=== PATIENT | female | born 1985 | race Caucasian/White ===

== ENCOUNTER 2020-02-08 12:06 | Emergency (ER) | payer OTHER, SELFPAY ==
[2020-02-08 12:23] VITALS: BP 117/55; PULSE 64; RESP 14; TEMP 36.8; O2SAT 100; BMI 35.4
--- NOTE | 2020-02-08 12:24 | XR_ITS ---
EXAMINATION: XR FOOT, LEFT CLINICAL INFORMATION: Trauma second toe. COMPARISON: None TECHNIQUE: AP, lateral, and oblique views of the left foot. FINDINGS: The second through fifth toes are superimposed on the lateral view. There is no visible fracture or dislocation or destructive process. No joint narrowing or erosive change. There is plantar calcaneal spur. The subtalar joint is unremarkable. The retrocalcaneal recess is preserved. XR/XR foot LT min 3V IMPRESSION: No fracture or dislocation. Plantar calcaneal spur.
--- NOTE | 2020-02-08 12:32 | ED.LOWEXIN ---
HPI - Extremity Injury (Lower) General Chief Complaint: Extremity Injury, Lower Stated Complaint: TOE INJURY Time Seen by Provider: 02/08/20 12:24 Source: patient Mode of arrival: ambulatory Limitations: no limitations History of Present Illness HPI Narrative: Tripped and fell catching 2nd toe on left foot underneath her scraping the pavement causing laceration to the toe and nailbed. Tetanus unknown. MD complaint: foot injury Onset (ago): minute(s) Injury: Left: toes (#2) Type of Injury: laceration Place: street/outdoors Severity: moderate Relieving factors: nothing Exacerbating factors: nothing Context: fall Other symptoms: none Related Data Previous Rx's Medication Instructions Recorded acetaminophen 650 mg PO Q6H PRN #20 cap 02/08/20 clindamycin HCl 150 mg PO TID 7 Days #21 cap 02/08/20 ibuprofen 600 mg PO Q8H PRN #20 tab 02/08/20 Allergies Allergy/AdvReac Type Severity Reaction Status Date / Time amoxicillin [Amoxicillin] Allergy Mild RASH Unverified 12/28/19 15:29 amoxicillin Allergy Unknown Uncoded 02/18/18 00:00 Review of Systems Review of Systems: Yes all other systems are reviewed and are negative Constitutional: Constitutional: Reports no additional constitutional complaints, Denies body ache(s), Denies chills, Denies fever(s), Denies headache(s) and Denies weakness Eyes: Eyes: Reports no additional eye complaints and Denies change in vision ENT: Reports system reviewed and no additional complaints, except as documented, Denies dizziness, Denies headache(s), Denies nasal congestion, Denies nasal discharge and Denies neck pain Cardiovascular: Cardiovascular: Reports no additional cardiovascular complaints, Denies chest pain, Denies leg edema and Denies dyspnea Respiratory: Respiratory: Reports no additional respiratory complaints, Denies cough and Denies dyspnea Gastrointestinal: Gastrointestinal: Reports no additional gastrointestinal complaints, Denies abdominal pain, Denies diarrhea, Denies nausea and Denies vomiting Genitourinary: Genitourinary: Reports no additional female genitourinary complaints and Denies urinary incontinence Musculoskeletal: Musculoskeletal: Reports no additional musculoskeletal complaints, Denies back pain, Reports arthralgias, Reports joint swelling, Denies neck pain, Denies numbness and Denies tingling Comments: +laceration Integumentary/Breasts: Skin/Breast: Reports system reviewed and no additional complaints, except as docu and Denies rash Neurologic: Reports system reviewed and no additional complaints, except as documented, Denies Abnormal speech present, Denies dizziness, Denies headache(s), Denies numbness, Denies tingling and Denies weakness PMFSH Past Medical History Attestation statement: The following information was validated with the patient. Source: obtained from family and nursing notes reviewed Surgical History Hx of cholecystectomy Previous section Social History Social History Smoking Status: Current some day smoker Use of substances other than those prescribed or required for medical reasons: Yes Substance Use Type: Crack/Cocaine and Marijuana Substance Use Frequency: Occasionally Last Used Substance: Days (ago) Advance Directives: No Advance Directives Information Provided: No Physical Exam Vital Signs: Vital Signs: Vital Signs Temp Pulse Resp BP Pulse Ox 02/08/20 12:23 98.3 F 64 14 117/55 L 100 Body Mass Index 35.4 Const: General: cooperative, healthy appearing, comfortable and no acute distress Orientation/consciousness: patient oriented x3 Limitations: no limitations HENMT: Head: Yes normal to inspection Ears: hearing grossly normal bilaterally General nose exam: Normal external nose present Face and sinus: Yes normal facial exam Mouth: Normal oral and palatal mucosa present Throat: Yes posterior oropharynx normal Eyes: General: appearance normal, both eyes and all related structures Pupils: Equal, round and reactive pupils present Neck: Neck: Yes normal visual inspection Chest: Chest palpation & inspection: normal inspection of the chest Resp: Effort & Inspection: normal respiratory effort Auscultation: clear to auscultation bilaterally Cardio: Rate: regular rate Rhythm: regular rhythm Peripheral pulses: Peripheral pulses 2+ throughout GI: Inspection: Yes normal to inspection Palpation (GI): Soft to palpation and nontender Auscultation: normal bowel sounds Back/Spine/Pelvis: Thoracic/Lumbar Spine: thoracic and lumbar spine normal to inspection Skin: General skin exam: no rashes or lesions noted Neuro: General: patient oriented x3, no focal motor deficits and normal sensation to monofilament Cranial nerves: Yes Equal, round and reactive pupils present Cognition (Neuro): normal cognition Speech: No Abnormal speech present Gait exam (Neuro): Normal gait present Motor exam (neuro): 5/5 motor strength present throughout Extrem: Other: just proximal to the nail bed on the left 2nd toe there is a circular laceration. It is not circumferential. The nailbed is lifted up and exposed. There is mild bleeding at the site but is controlled. The patient is able to flex and extend the toe but does have some discomfort.Norm cap refill, NV intact. General: Yes normal to inspection Course Course Course Narrative: Patient here with left 2nd toe laceration with involvement of the nailbed. She will need x-rays, tetanus updated, wound repair and antibiotics for home. 1350-X-rays negative. See wound repair note. Nail plate placed back under the cuticle and sutures used to hold in place. Wound care and post-op shoe. Reviewed worrisome signs and symptoms and when to return to the emergency department. Comfortable discharge home. Procedures Laceration Laceration 1: Site: lower extremity (2nd toe ) Side (If applicable): left Size (cm): 1.5 Description: linear (circular around nail bed) Depth: simple, single layer (involves nailbed) Local Anesthetic: lidocaine 2% Pre-repair: wound explored and irrigated extensively Skin layer closed with: nylon Size (cm): 3-0 Number of sutures: 6 Technique: simple, interrupted MDM - Extremity Injury (Lower) Medical Records Attestation: I reviewed the patient's medical records. Lab Data Attestation: I reviewed the patient's lab results. Imaging Data foot xray: Radiologist's impression: EXAMINATION: XR FOOT, LEFT CLINICAL INFORMATION: Trauma second toe. COMPARISON: None TECHNIQUE: AP, lateral, and oblique views of the left foot. FINDINGS: The second through fifth toes are superimposed on the lateral view. There is no visible fracture or dislocation or destructive process. No joint narrowing or erosive change. There is plantar calcaneal spur. The subtalar joint is unremarkable. The retrocalcaneal recess is preserved. XR/XR foot LT min 3V IMPRESSION: No fracture or dislocation. Plantar calcaneal spur. Discharge Plan Discharge Clinical Impression: Avulsion of nail plate Patient Disposition: Home, Self-Care Instructions: Nail Avulsion (ED) Additional Instructions: Sutures out in 7-10 days Do not let them soak in water. Water may run over the sutures. Use shoe so you do not hit your toe and disrupt the nail. Even though we did the best we could the nail may still fall off. Prescriptions: New ibuprofen 600 mg tablet 600 mg PO Q8H PRN (Reason: fever or pain) Qty: 20 RF: 0 acetaminophen 325 mg capsule 650 mg PO Q6H PRN (Reason: fever or pain) Qty: 20 RF: 0 clindamycin HCl 150 mg capsule 150 mg PO TID 7 Days Qty: 21 RF: 0 Referrals: Physician,Unknown [Primary Care Provider] - 2 days Interventions: ED Discharge Assessment Last Done: 02/08/20 13:43 Discharge Date/Time: 02/08/20 13:44
[2020-02-08] MEDS: Lidocaine HCl 2 % MPF 5 ML VIAL SUBCUT (12:41)
== END 2020-02-08 13:44 | disposition home or self-care (01) ==
PROVIDERS: Emergency Provider Emergency Medicine
DX: S91.215A Laceration without foreign body of left lesser toe(s) with damage to nail, initial encounter (principal); S30.811A Abrasion of abdominal wall, initial encounter; S91.205A Unspecified open wound of left lesser toe(s) with damage to nail, initial encounter; M79.672 Pain in left foot; F14.90 Cocaine use, unspecified, uncomplicated; F12.90 Cannabis use, unspecified, uncomplicated; Y33.XXXA Other specified events, undetermined intent, initial encounter; Y93.9 Activity, unspecified; Y92.410 Unspecified street and highway as the place of occurrence of the external cause; F17.200 Nicotine dependence, unspecified, uncomplicated; Z71.6 Tobacco abuse counseling; Z23 Encounter for immunization
CPT/HCPCS: 12001; 73630; 90471; 90715; 99283; 99284

== ENCOUNTER 2020-02-09 09:38 | Outpatient (REF) | payer OTHER, SELFPAY | END 2020-02-09 09:39 | disposition home or self-care (01) | LOC: HO.LAB 09:38 | PROVIDERS: Visit Provider Internal Medicine | DX: Z20.828 Contact with and (suspected) exposure to other viral communicable diseases (principal) | CPT/HCPCS: U0003 ==

== ENCOUNTER 2020-07-19 14:36 | Outpatient (REF) | payer OTHER, SELFPAY ==
[2020-07-19 16:13] LABS: COVID-19 Test Negative (Negative); IDNOW Serial# 55D5AD1C
== END 2020-07-19 14:37 | disposition home or self-care (01) ==
LOC: HO.LAB 14:36
PROVIDERS: Visit Provider Internal Medicine
DX: Z20.822 Contact with and (suspected) exposure to COVID-19 (principal)
CPT/HCPCS: 36415; 87635; C9803

== ENCOUNTER 2020-09-18 17:26 | Emergency (ER) | payer OTHER, SELFPAY ==
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
[2020-09-18 17:48] VITALS: BP 121/70; PULSE 108; RESP 17; TEMP 36.3; O2SAT 94; BMI 46.0
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
== END 2020-09-18 19:21 | disposition home or self-care (01) ==
PROVIDERS: Emergency Provider Emergency Medicine; PCP Internal Medicine
DX: S86.111A Strain of other muscle(s) and tendon(s) of posterior muscle group at lower leg level, right leg, initial encounter (principal); Y04.2XXA Assault by strike against or bumped into by another person, initial encounter; R00.0 Tachycardia, unspecified; M25.561 Pain in right knee; Y93.9 Activity, unspecified; Y92.9 Unspecified place or not applicable; Y99.9 Unspecified external cause status
CPT/HCPCS: 73562; 99283

== ENCOUNTER 2020-10-16 10:11 | Emergency (ER) | payer OTHER, SELFPAY ==
--- NOTE | ~2020-10-16 | XR_ITS ---
EXAMINATION: CHEST X-RAY AND RIGHT KNEE X-RAY CLINICAL INFORMATION: Pain COMPARISON: Previous chest x-ray June 2017 and right knee x-ray September 2020 TECHNIQUE: 2 views of the chest and 4 views of the right knee FINDINGS: Chest: The cardiac and mediastinal contours are normal. The lungs are clear. There is no pleural effusion or pneumothorax. Bony structures are unremarkable. Right knee: Bone alignment is normal. No fracture or dislocation is seen. The joint spaces are normal. There are sclerotic densities seen in the distal femur and proximal tibia. These may represent bone islands or nonossifying fibromas. Soft tissues are normal. There is no joint effusion. 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
--- NOTE | ~2020-10-16 | XR_ITS ---
EXAMINATION: CHEST X-RAY AND RIGHT KNEE X-RAY CLINICAL INFORMATION: Pain COMPARISON: Previous chest x-ray June 2017 and right knee x-ray September 2020 TECHNIQUE: 2 views of the chest and 4 views of the right knee FINDINGS: Chest: The cardiac and mediastinal contours are normal. The lungs are clear. There is no pleural effusion or pneumothorax. Bony structures are unremarkable. Right knee: Bone alignment is normal. No fracture or dislocation is seen. The joint spaces are normal. There are sclerotic densities seen in the distal femur and proximal tibia. These may represent bone islands or nonossifying fibromas. Soft tissues are normal. There is no joint effusion. 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
[2020-10-16 10:24] VITALS: BP 119/59; PULSE 85; RESP 16; TEMP 36.1; O2SAT 98; BMI 49.6
--- NOTE | 2020-10-16 10:58 | ECG_ITS ---
Test Reason : CHEST PAIN Blood Pressure : / mmHG Vent. Rate : 054 BPM Atrial Rate : 054 BPM P-R Int : 144 ms QRS Dur : 088 ms QT Int : 422 ms P-R-T Axes : 027 -20 025 degrees QTc Int : 400 ms Sinus bradycardia with sinus arrhythmia Moderate voltage criteria for LVH, may be normal variant Borderline ECG When compared with ECG of 08-JUN-2017 10:33, No significant change was found Referred By: Amy Estrada Electronically Signed By:ELIZABETH NEVILLE
[2020-10-16 12:12] LABS: MANUAL DIFF FLAG NO
[2020-10-16 12:18] LABS: Basophils Percent Auto 0.4 % (0-2); Eosinophils Absolute Auto 0.4 X10*3/uL (0.0-0.4); Eosinophils Percent Auto 3.4 % (0-4); Hematocrit 42.4 % (37-47); Hemoglobin 13.3 g/dl (12.0-16.0); Imm Gran Abs Auto 0.04 X10*3/uL (0.00-0.03); Imm Gran Pct Auto 0.4 % (0.0-0.4); Lymphocytes Absolute Auto 3.1 X10*3/uL (1.2-4.9); Lymphocytes Percent Auto 27.7 % (20-40); Mean Corpuscular HGB Conc 31.4 g/dl (31.0-35.0); Mean Corpuscular Volume 86.2 fL (80-98); Mean Platelet Volume 9.7 fL (9.4-12.3); Monocytes Absolute Auto 0.8 X10*3/uL (0.1-1.2); Monocytes Percent Auto 6.9 % (2-11); Neutrophils Absolute Auto 6.8 X10*3/uL (2.0-8.3); Neutrophils Percent Auto 61.2 % (45-73); Platelet Count 357 X10*3/uL (160-400); Red Blood Count 4.92 X10*6/uL (4.20-5.50); Red Cell Distribution Width 13.6 % (11.0-16.0); White Blood Count 11.1 X10*3/uL (4.8-10.8)
[2020-10-16 12:23] LABS: Glucose Urine UA NEG (NEG); Leukocyte Esterase Urine NEG (NEG); Nitrite Urine NEG (NEG); Specific Gravity - Urine >= 1.030 (1.005-1.025); Urine Blood 1+ (NEG); Urine Ketones NEG (NEG); Urine Protein NEG (NEG-TRACE)
[2020-10-16 12:25] LABS: Appearance Urine HAZY; Color Urine YELLOW
[2020-10-16 12:26] LABS: UPreg QC Valid YES; Urine Pregnancy NEGATIVE (NEGATIVE)
[2020-10-16 12:34] LABS: Mucus Urine 1+ /LPF; Squamous Epithelial Cell Urine 1+ /LPF; Urine Talc Crystals 1+ /LPF; WBC Urine 0 /HPF (0-4)
[2020-10-16 12:47] LABS: Alanine Aminotransferase 17 U/L (0-31); Albumin Level 3.6 g/dL (3.5-5.0); Alkaline Phosphatase 91 U/L (39-117); Anion Gap 15 (12-20); Aspartate Amino Transferase 16 U/L (5-31); Bilirubin Total 0.7 mg/dL (0.0-1.0); Blood Urea Nitrogen 9 mg/dL (9-16); Carbon Dioxide 22 mmol/L (22-29); Chloride 109 mmol/L (96-108); Creatinine Clr Calc Pharmacy 152.2; Estimated Glomerular Filt Rate > 60; Glucose Random 75 mg/dL (60-115); Potassium 4.6 mmol/L (3.3-5.1); Sodium 141 mmol/L (135-145); Total Protein 6.4 g/dL (6.5-8.0)
[2020-10-16 12:48] LABS: B Type Natriuretic Peptide 54 pg/mL (<100); Troponin-I High Sensitivity < 3.5 ng/L (<3.5-17.0)
--- NOTE | 2020-10-16 12:49 | ED_ITS ---
HPI - General Adult General Chief complaint: General Medical <HAYDER Whatley - Last Filed: 10/16/20 13:08> Stated complaint: leg pain <HAYDER Whatley Last Filed: 10/16/20 13:08> Time Seen by Provider: 10/16/20 10:27 <HAYDER Whatley Last Filed: 10/16/20 13:08> Source: patient <HAYDER Whatley Last Filed: 10/16/20 13:08> Mode of arrival: ambulatory <HAYDER Whatley Last Filed: 10/16/20 13:08> Limitations: no limitations <HAYDER Whatley Last Filed: 10/16/20 13:08> History of Present Illness HPI narrative: 35-year-old female with a past medical history of hypertension and depression presenting to the ED with complaints of right knee pain for the past 3 weeks reports that she had an x-ray here approximately 3 weeks ago and they told her it was all within normal limits although her pain continues and she reports that occasionally she will walk and she feels like her leg goes out to the side. She is also complaining of intermittent left-sided chest pain for the past 3 days usually when she is driving. She reports she is under lot of str ess. Denies any dizziness, headaches, change of vision, nausea /vomiting, dyspnea on exertion, orthopnea, shortness of breath, palpitations, lower extremity edema, abdominal pain, back pain, recent travel on a long plane clinical trainer car ride, history of DVT, she denies being on any oral control, she denies any recent surgery or immobilization, she denies any other symptoms complaints or concerns at this time. <HAYDER Whatley Last Filed: 10/16/20 13:08> Related Data Home medications: Previous Rx's Medication Instructions Recorded acetaminophen 650 mg PO Q6H PRN #20 cap 02/08/20 clindamycin HCl 150 mg PO TID 7 Days #21 cap 02/08/20 ibuprofen 600 mg PO Q8H PRN #20 tab 02/08/20 naproxen [Naprosyn] 500 mg PO BID #20 tab 09/18/20 acetaminophen [Tylenol Extra 1,000 mg PO QID PRN #14 tab 10/16/20 Strength] ibuprofen 800 mg PO Q8H PRN #14 tab 10/16/20 oxycodone 5 mg PO Q8H PRN 3 Days #9 tab 10/23/20 <HAYDER Whatley - Last Filed: 10/16/20 13:08> Allergies/adverse reactions: Allergies Allergy/AdvReac Type Severity Reaction Status Date / Time amoxicillin [Amoxicillin] Allergy Mild RASH Verified 09/18/20 17:52 <HAYDER Whatley - Last Filed: 10/16/20 13:08> Review of Systems Review of Systems: Constitutional : No Weight loss, No Fever, No Chills, No Night Sweats, No Fatigue, NoMalaise ENT/Mouth: No ear pain, No sore throat, No Difficulty swallowing Cardiovascular : Positive intermittent Chest Pain, No SOB, No Dyspnea on Exertion, No Orthopnea, NoEdema, No Palpitations Respiratory : No Cough, No Sputum, No Wheezing, No Dyspnea Gastrointestinal : No Nausea, No Vomiting, No abdominal pain, No Diarrhea, No blood streaked emesis, No coffee-ground emesis, No gross hematemesis, No blood streak stool, No gross hematochezia, No Melena Genitourinary : No irregular bleeding, No Dysuria, No Urinary Frequency, No Hematuria,No Urinary Incontinence, No Urgency, No Flank Pain Musculoskeletal : positive right knee joint pain, No Myalgias, No Joint Swelling Skin : No Skin Lesions, No rash Neuro : No Weakness, No Numbness, No Paresthesias, No Loss of Consciousness, NoDizziness, No Headache Psych : No Social Issues, Heme/Lymph: No Bruising, No Bleeding,No Lymphadenopathy Endocrine : No Polyuria, No Polydipsia, No Temperature Intolerance <HAYDER Whatley - Last Filed: 10/16/20 13:08> Yes all other systems are reviewed and are negative <HAYDER Whatley - Last Filed: 10/16/20 13:08> [facility] Past Medical History Attestation statement: The following information was validated with the patient. <HAYDER Whatley - Last Filed: 10/16/20 13:08> Surgical History: Surgical History Hx of cholecystectomy Previous section <HAYDER Whatley - Last Filed: 10/16/20 13:08> Social History Social History: Social History Substance Use Type: Crack/Cocaine and Marijuana Advance Directives: Yes Advance Directives Information Provided: No Advance Directives on File: No Patient : No <HAYDER Whatley - Last Filed: 10/16/20 13:08> Physical Exam Vital Signs: Vital Signs: Last Vital Signs Temp 96.9 F 10/16/20 10:24 Pulse 59 10/16/20 12:59 Resp 16 10/16/20 12:59 BP 134/66 10/16/20 12:59 Pulse Ox 99 10/16/20 12:59 Body Mass Index 49.6 vital signs have been reviewed as normal and appeared to be correct. Blood pressure normal. Heart rate normal. Respiration rate normal. Temperature normal. Oxygen saturation normal. <HAYDER Whatley - Last Filed: 10/16/20 13:08> Vital Signs: Last Vital Signs Temp 96.9 F 10/16/20 10:24 Pulse 59 10/16/20 12:59 Resp 16 10/16/20 12:59 BP 134/66 10/16/20 12:59 Pulse Ox 99 10/16/20 12:59 Body Mass Index 49.6 <Lauro Abbott MD - Last Filed: 11/04/20 20:54> Appearance: Alert. Oriented X3. No acute distress. Head: Normal external exam. Normocephalic. Atraumatic. No Pavon signs noted. No raccoon eyes noted Eyes: PERRLA. EOMI. Conjunctiva and sclera normal. Eyelids normal. ENT: EAC normal. TM's Normal. Pharynx normal. Uvula midline. Moist mucous membranes. No trismus noted. No drooling noted. No muffled voice noted. Neck: Normal inspection. Neck supple. FROM. No adenopathy. Thyroid Normal. No meningeal signs. No neck mass noted. CVS: Normal heart rate and rhythm. Heart sound normal. Pulses normal throughout. No murmurs/rales/gallops. Respiratory: No respiratory distress. Painless inspiration. Breath sounds normal. No wheezes/rales/rhonchi noted. Chest nontender. No accessory muscle usage noted or decreased air movement noted. Abdomen: Soft and nontender. Bowel sounds normal in all 4 quadrants. No distention noted. No organomegaly noted. No visible injury noted. Back: No CVA tenderness. Full range of motion noted. No rashes/lesion/induration/fluctuance or signs of infection noted. Skin: Skin warm and dry. Normal skin color. Normal skin turgor. No rashes/lesions/lacerations noted. Extremities: patient mild tenderness to the right knee although she has full range of motion no signs of infection no ligamentous laxity is noted. No calf tenderness is noted. No lower extremity edema. Otherwise all other Extremities exhibit normal range of motion and nontender. Neuro: Oriented X 3. No motor deficit. No sensory deficit. Reflexes normal. Normal steady gait. No focal neuro deficits noted. Vascular: + radial pulses/+ 2 distal pedal pulses/+2 dorsalis pedis b/l. Normal cap refill. No cyanosis noted to upper extremity nails and lower extremity toes nails. <HAYDER Whatley - Last Filed: 10/16/20 13:08> Course Course Course Narrative: 35-year-old female presenting to the ED with complaints of intermittent chest pain for the past 3 days usually when she is driving under a lot of stressors. Denies any other symptoms related to this. Perc negative. Also, complaining of persistent right knee pain for the past 3 weeks despite having a normal x-ray 3 weeks ago here reports that her knee feels like it goes out to the right side when she walks. Denies any other injury complaints or concerns at this time. Labs obtained and all within normal limits. UA within normal limits no evidence of UTI. urine is negative. Chest x-ray within normal limits. 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 Will DC home with symptomatic treatment along with referral to Orthopedics and to follow-up with her primary care provider. Patient understands agrees with this plan. Along with instructions return if any new or worsening symptoms. <HAYDER Whatley - Last Filed: 10/16/20 13:08> I have reviewed the chart <Lauro Abbott MD - Last Filed: 11/04/20 20:54> Medical Decision Making Medical Records Medical records reviewed: Yes I reviewed the patient's medical records. <HAYDER Whatley - Last Filed: 10/16/20 13:08> Lab Data Lab results reviewed: Yes I reviewed the patient's lab results. <HAYDER Whatley - Last Filed: 10/16/20 13:08> Result diagrams: : 10/16/20 11:39 10/16/20 11:40 <HAYDER Whatley - Last Filed: 10/16/20 13:08> Labs: Lab Results 10/16/20 10/16/20 10/16/20 Range/Units 09:00 11:32 11:32 WBC (4.8-10.8) X10*3/uL RBC (4.20-5.50) X10*6/uL Hgb (12.0-16.0) g/dl Hct (37-47) % MCV (80-98) fL MCH (27.0-33.0) pg MCHC (31.0-35.0) g/dl RDW (11.0-16.0) % Plt Count (160-400) X10*3/uL MPV (9.4-12.3) fL Immature Gran % (Auto) (0.0-0.4) % Neut % (Auto) (45-73) % Lymph % (Auto) (20-40) % [place] % (Auto) (2-11) % Eos % (Auto) (0-4) % Baso % (Auto) (0-2) % Lymph # (Auto) (1.2-4.9) X10*3/uL [place] # (Auto) (0.1-1.2) X10*3/uL Eos # (Auto) (0.0-0.4) X10*3/uL Baso # (Auto) (0.0-0.2) X10*3/uL Abs Immat Gran (auto) (0.00-0.03) X10*3/uL Absolute Neuts (auto) (2.0-8.3) X10*3/uL Absolute Nucleated RBC (0.0-0.012) X10*3/uL Nucleated RBC % (auto) (0.0-0.2) /100WBC Sodium (135-145) mmol/L Potassium (3.3-5.1) mmol/L Chloride (96-108) mmol/L Carbon Dioxide (22-29) mmol/L Anion Gap (12-20) BUN (9-16) mg/dL Creatinine (0.5-1.4) mg/dL Estim Creat Clear Calc Estimated GFR Random Glucose (60-115) mg/dL Calcium (8.4-10.2) mg/dL Magnesium (1.6-2.6) mg/dL Total Bilirubin (0.0-1.0) mg/dL AST (5-31) U/L ALT (0-31) U/L Alkaline Phosphatase (39-117) U/L Troponin I High Sens (<3.5-17.0) ng/L B-Natriuretic Peptide (<100) pg/mL Total Protein (6.5-8.0) g/dL Albumin (3.5-5.0) g/dL Urine Color YELLOW Urine Appearance HAZY Urine pH 6.0 (5.0-8.0) Ur Specific [place] >= 1.030 H (1.005-1.025) Urine Protein NEG (NEG-TRACE) MG/DL Urine Glucose (UA) NEG (NEG) MG/DL Urine Ketones NEG (NEG) MG/DL Urine Blood 1+ H (NEG) Urine Nitrite NEG (NEG) Ur Leukocyte Esterase NEG (NEG) Urine RBC 1-4 (0) /HPF Urine WBC 0 (0-4) /HPF Ur Squamous Epith Cells 1+ /LPF [place] Crystals 1+ /LPF Urine Bacteria NONE /LPF Urine Mucus 1+ /LPF Urine Test NEGATIVE (NEGATIVE) Saliva Cortisol Cancelled 10/16/20 10/16/20 10/16/20 Range/Units 11:39 11:40 11:40 WBC 11.1 H (4.8-10.8) X10*3/uL RBC 4.92 (4.20-5.50) X10*6/uL Hgb 13.3 (12.0-16.0) g/dl Hct 42.4 (37-47) % MCV 86.2 (80-98) fL MCH 27.0 (27.0-33.0) pg MCHC 31.4 (31.0-35.0) g/dl RDW 13.6 (11.0-16.0) % Plt Count 357 (160-400) X10*3/uL MPV 9.7 (9.4-12.3) fL Immature Gran % (Auto) 0.4 (0.0-0.4) % Neut % (Auto) 61.2 (45-73) % Lymph % (Auto) 27.7 (20-40) % [place] % (Auto) 6.9 (2-11) % Eos % (Auto) 3.4 (0-4) % Baso % (Auto) 0.4 (0-2) % Lymph # (Auto) 3.1 (1.2-4.9) X10*3/uL [place] # (Auto) 0.8 (0.1-1.2) X10*3/uL Eos # (Auto) 0.4 (0.0-0.4) X10*3/uL Baso # (Auto) 0.0 (0.0-0.2) X10*3/uL Abs Immat Gran (auto) 0.04 H (0.00-0.03) X10*3/uL Absolute Neuts (auto) 6.8 (2.0-8.3) X10*3/uL Absolute Nucleated RBC 0.000 (0.0-0.012) X10*3/uL Nucleated RBC % (auto) 0.0 (0.0-0.2) /100WBC Sodium 141 (135-145) mmol/L Potassium 4.6 (3.3-5.1) mmol/L Chloride 109 H (96-108) mmol/L Carbon Dioxide 22 (22-29) mmol/L Anion Gap 15 (12-20) BUN 9 (9-16) mg/dL Creatinine 0.67 (0.5-1.4) mg/dL Estim Creat Clear Calc 152.2 Estimated GFR > 60 Random Glucose 75 (60-115) mg/dL Calcium 9.0 (8.4-10.2) mg/dL Magnesium 2.0 (1.6-2.6) mg/dL Total Bilirubin 0.7 (0.0-1.0) mg/dL AST 16 (5-31) U/L ALT 17 (0-31) U/L Alkaline Phosphatase 91 (39-117) U/L Troponin I High Sens < 3.5 (<3.5-17.0) ng/L B-Natriuretic Peptide 54 (<100) pg/mL Total Protein 6.4 L (6.5-8.0) g/dL Albumin 3.6 (3.5-5.0) g/dL Urine Color Urine Appearance Urine pH (5.0-8.0) Ur Specific [place] (1.005-1.025) Urine Protein (NEG-TRACE) MG/DL Urine Glucose (UA) (NEG) MG/DL Urine Ketones (NEG) MG/DL Urine Blood (NEG) Urine Nitrite (NEG) Ur Leukocyte Esterase (NEG) Urine RBC (0) /HPF Urine WBC (0-4) /HPF Ur Squamous Epith Cells /LPF [place] Crystals /LPF Urine Bacteria /LPF Urine Mucus /LPF Urine Test (NEGATIVE) Saliva Cortisol <HAYDER Whatley - Last Filed: 10/16/20 13:08> Lab Results 10/16/20 10/16/20 10/16/20 Range/Units 09:00 11:32 11:32 WBC (4.8-10.8) X10*3/uL RBC (4.20-5.50) X10*6/uL Hgb (12.0-16.0) g/dl Hct (37-47) % MCV (80-98) fL MCH (27.0-33.0) pg MCHC (31.0-35.0) g/dl RDW (11.0-16.0) % Plt Count (160-400) X10*3/uL MPV (9.4-12.3) fL Immature Gran % (Auto) (0.0-0.4) % Neut % (Auto) (45-73) % Lymph % (Auto) (20-40) % [place] % (Auto) (2-11) % Eos % (Auto) (0-4) % Baso % (Auto) (0-2) % Lymph # (Auto) (1.2-4.9) X10*3/uL [place] # (Auto) (0.1-1.2) X10*3/uL Eos # (Auto) (0.0-0.4) X10*3/uL Baso # (Auto) (0.0-0.2) X10*3/uL Abs Immat Gran (auto) (0.00-0.03) X10*3/uL Absolute Neuts (auto) (2.0-8.3) X10*3/uL Absolute Nucleated RBC (0.0-0.012) X10*3/uL Nucleated RBC % (auto) (0.0-0.2) /100WBC Sodium (135-145) mmol/L Potassium (3.3-5.1) mmol/L Chloride (96-108) mmol/L Carbon Dioxide (22-29) mmol/L Anion Gap (12-20) BUN (9-16) mg/dL Creatinine (0.5-1.4) mg/dL Estim Creat Clear Calc Estimated GFR Random Glucose (60-115) mg/dL Calcium (8.4-10.2) mg/dL Magnesium (1.6-2.6) mg/dL Total Bilirubin (0.0-1.0) mg/dL AST (5-31) U/L ALT (0-31) U/L Alkaline Phosphatase (39-117) U/L Troponin I High Sens (<3.5-17.0) ng/L B-Natriuretic Peptide (<100) pg/mL Total Protein (6.5-8.0) g/dL Albumin (3.5-5.0) g/dL Urine Color YELLOW Urine Appearance HAZY Urine pH 6.0 (5.0-8.0) Ur Specific [place] >= 1.030 H (1.005-1.025) Urine Protein NEG (NEG-TRACE) MG/DL Urine Glucose (UA) NEG (NEG) MG/DL Urine Ketones NEG (NEG) MG/DL Urine Blood 1+ H (NEG) Urine Nitrite NEG (NEG) Ur Leukocyte Esterase NEG (NEG) Urine RBC 1-4 (0) /HPF Urine WBC 0 (0-4) /HPF Ur Squamous Epith Cells 1+ /LPF [place] Crystals 1+ /LPF Urine Bacteria NONE /LPF Urine Mucus 1+ /LPF Urine Test NEGATIVE (NEGATIVE) Saliva Cortisol Cancelled 10/16/20 10/16/20 10/16/20 Range/Units 11:39 11:40 11:40 WBC 11.1 H (4.8-10.8) X10*3/uL RBC 4.92 (4.20-5.50) X10*6/uL Hgb 13.3 (12.0-16.0) g/dl Hct 42.4 (37-47) % MCV 86.2 (80-98) fL MCH 27.0 (27.0-33.0) pg MCHC 31.4 (31.0-35.0) g/dl RDW 13.6 (11.0-16.0) % Plt Count 357 (160-400) X10*3/uL MPV 9.7 (9.4-12.3) fL Immature Gran % (Auto) 0.4 (0.0-0.4) % Neut % (Auto) 61.2 (45-73) % Lymph % (Auto) 27.7 (20-40) % [place] % (Auto) 6.9 (2-11) % Eos % (Auto) 3.4 (0-4) % Baso % (Auto) 0.4 (0-2) % Lymph # (Auto) 3.1 (1.2-4.9) X10*3/uL [place] # (Auto) 0.8 (0.1-1.2) X10*3/uL Eos # (Auto) 0.4 (0.0-0.4) X10*3/uL Baso # (Auto) 0.0 (0.0-0.2) X10*3/uL Abs Immat Gran (auto) 0.04 H (0.00-0.03) X10*3/uL Absolute Neuts (auto) 6.8 (2.0-8.3) X10*3/uL Absolute Nucleated RBC 0.000 (0.0-0.012) X10*3/uL Nucleated RBC % (auto) 0.0 (0.0-0.2) /100WBC Sodium 141 (135-145) mmol/L Potassium 4.6 (3.3-5.1) mmol/L Chloride 109 H (96-108) mmol/L Carbon Dioxide 22 (22-29) mmol/L Anion Gap 15 (12-20) BUN 9 (9-16) mg/dL Creatinine 0.67 (0.5-1.4) mg/dL Estim Creat Clear Calc 152.2 Estimated GFR > 60 Random Glucose 75 (60-115) mg/dL Calcium 9.0 (8.4-10.2) mg/dL Magnesium 2.0 (1.6-2.6) mg/dL Total Bilirubin 0.7 (0.0-1.0) mg/dL AST 16 (5-31) U/L ALT 17 (0-31) U/L Alkaline Phosphatase 91 (39-117) U/L Troponin I High Sens < 3.5 (<3.5-17.0) ng/L B-Natriuretic Peptide 54 (<100) pg/mL Total Protein 6.4 L (6.5-8.0) g/dL Albumin 3.6 (3.5-5.0) g/dL Urine Color Urine Appearance Urine pH (5.0-8.0) Ur Specific [place] (1.005-1.025) Urine Protein (NEG-TRACE) MG/DL Urine Glucose (UA) (NEG) MG/DL Urine Ketones (NEG) MG/DL Urine Blood (NEG) Urine Nitrite (NEG) Ur Leukocyte Esterase (NEG) Urine RBC (0) /HPF Urine WBC (0-4) /HPF Ur Squamous Epith Cells /LPF [place] Crystals /LPF Urine Bacteria /LPF Urine Mucus /LPF Urine Test (NEGATIVE) Saliva Cortisol <Lauro Abbott MD - Last Filed: 11/04/20 20:54> Imaging Data Chest x-ray right knee x-ray: Attestation: I personally reviewed and interpreted this imaging study as follows: <HAYDER Whatley - Last Filed: 10/16/20 13:08> Radiologist's impression: FINDINGS: Chest: The cardiac and mediastinal contours are normal. The lungs are clear. There is no pleural effusion or pneumothorax. Bony structures are unremarkable. Right knee: Bone alignment is normal. No fracture or dislocation is seen. The joint spaces are normal. There are sclerotic densities seen in the distal femur and proximal tibia. These may represent bone islands or nonossifying fibromas. Soft tissues are normal. There is no joint effusion. 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 <HAYDER Whatley - Last Filed: 10/16/20 13:08> ECG Data Attestation: I personally reviewed and interpreted this ECG as follows: <HAYDER Whatley - Last Filed: 10/16/20 13:08> Interpretation: sinus bradycardia with ventricular rate of 54 with MO interval of 144 normal QRS normal QT /QTC interval. No acute ischemic change noted. No prior EKGs to compare to in our system at this time. <HAYDER Whatley - Last Filed: 10/16/20 13:08> Discharge Plan Discharge Clinical Impression: Atypical chest pain, Knee strain, Bone island of right femur <HAYDER Whatley - Last Filed: 10/16/20 13:08> Patient Disposition: Home, Self-Care <HAYDER Whatley - Last Filed: 10/16/20 13:08> Instructions: Knee Pain (ED), Noncardiac Chest Pain (ED) <HAYDER Whatley - Last Filed: 10/16/20 13:08> Prescriptions: New ibuprofen 800 mg tablet 800 mg PO Q8H PRN (Reason: pain) Qty: 14 RF: 0 acetaminophen [Tylenol Extra Strength] 500 mg tablet 1,000 mg PO QID PRN (Reason: fever or pain) Qty: 14 RF: 0 oxycodone 5 mg tablet 5 mg PO Q8H PRN (Reason: pain, severe) 3 Days Qty: 9 RF: 0 No Action ibuprofen 600 mg tablet 600 mg PO Q8H PRN (Reason: fever or pain) Qty: 20 RF: 0 acetaminophen 325 mg capsule 650 mg PO Q6H PRN (Reason: fever or pain) Qty: 20 RF: 0 clindamycin HCl 150 mg capsule 150 mg PO TID 7 Days Qty: 21 RF: 0 naproxen [Naprosyn] 500 mg tablet 500 mg PO BID Qty: 20 RF: 0 <HAYDER Whatley Last Filed: 10/16/20 13:08> Referrals: Ann Murray MD [Primary Care Provider] - 2 days InstrumErika MD [Physician] - 2 weeks ( if right knee pain continues to cau se you pain) <HAYDER Whatley Last Filed: 10/16/20 13:08> Interventions: ED Discharge Assessment Last Done: 10/16/20 13:03 <HAYDER Whatley - Last Filed: 10/16/20 13:08> Discharge Date/Time: 10/16/20 13:05 <HAYDER Whatley - Last Filed: 10/16/20 13:08> Print Language: Nepali <HAYDER Whatley - Last Filed: 10/16/20 13:08>
[2020-10-16 12:59] VITALS: BP 134/66; PULSE 59; RESP 16; O2SAT 99
== END 2020-10-16 13:05 | disposition home or self-care (01) ==
PROVIDERS: Physician Assistant Medical; Emergency Provider Emergency Medicine; PCP Internal Medicine
DX: S86.911A Strain of unspecified muscle(s) and tendon(s) at lower leg level, right leg, initial encounter (principal); M89.8X5 Other specified disorders of bone, thigh; R07.89 Other chest pain; I10 Essential (primary) hypertension; X58.XXXA Exposure to other specified factors, initial encounter; Y93.9 Activity, unspecified; Y92.9 Unspecified place or not applicable; Y99.9 Unspecified external cause status
CPT/HCPCS: 36415; 71046; 73564; 80053; 81001; 81025; 83735; 83880; 84484; 85025; 93005; 99283; 99284

== ENCOUNTER 2021-06-01 01:08 | Emergency (ER) | payer OTHER, SELFPAY ==
--- NOTE | 2021-06-01 | ECG_ITS ---
Test Reason : CHEST PAIN Blood Pressure : / mmHG Vent. Rate : 069 BPM Atrial Rate : 069 BPM P-R Int : 166 ms QRS Dur : 090 ms QT Int : 406 ms P-R-T Axes : 039 -23 020 degrees QTc Int : 435 ms Normal sinus rhythm with sinus arrhythmia Moderate voltage criteria for LVH, may be normal variant ( R in aVL , [place] product ) Borderline ECG When compared with ECG of 16-OCT-2020 11:27, No significant change was found Referred By: Generic ED Physician Electronically Signed By:VIVEK CHOU MD
[2021-06-01 01:12] VITALS: BP 118/83; PULSE 71; RESP 18; TEMP 36.6; O2SAT 98; BMI 49.6
== END 2021-06-01 03:36 | disposition left against medical advice (07) ==
PROVIDERS: Emergency Provider Emergency Medicine
DX: R07.89 Other chest pain (principal); R09.81 Nasal congestion
CPT/HCPCS: 93005; 99283

== ENCOUNTER 2021-06-01 10:24 | Emergency (ER) | payer OTHER, SELFPAY ==
--- NOTE | ~2021-06-01 | XR_ITS ---
EXAMINATION: XR CHEST CLINICAL INFORMATION: Chest pain COMPARISON: Previous chest x-ray October 2020 TECHNIQUE: 2 views of the chest were obtained. FINDINGS: No significant abnormality is noted involving the heart, lungs, mediastinum, bony thorax or soft tissues. XR/XR chest 2V IMPRESSION: Unremarkable examination.
[2021-06-01 10:27] VITALS: BP 123/75; PULSE 93; RESP 18; TEMP 37; O2SAT 99; BMI 49.6
[2021-06-01] MEDS: Cyclobenzaprine HCl 10 MG TABLET PO (12:55)
[2021-06-01] MEDS: NaPROXEN 500 MG TABLET PO (12:56)
[2021-06-01 13:11] LABS: MANUAL DIFF FLAG NO
[2021-06-01 13:12] LABS: Basophils Absolute Auto 0.1 X10*3/uL (0.0-0.2); Basophils Percent Auto 0.4 % (0-2); Eosinophils Absolute Auto 0.4 X10*3/uL (0.0-0.4); Eosinophils Percent Auto 3.1 % (0-4); Hematocrit 45.2 % (37.0-47.0); Hemoglobin 14.1 g/dl (12.0-16.0); Imm Gran Abs Auto 0.06 X10*3/uL (0.00-0.03); Imm Gran Pct Auto 0.4 % (0.0-0.4); Lymphocytes Percent Auto 22.2 % (20-40); Mean Corpuscular HGB Conc 31.2 g/dl (31.0-35.0); Mean Corpuscular Hemoglobin 26.9 pg (27.0-33.0); Mean Corpuscular Volume 86.3 fL (80.0-98.0); Mean Platelet Volume 9.3 fL (9.4-12.3); Monocytes Percent Auto 7.3 % (2-11); Neutrophils Percent Auto 66.6 % (45-73); Platelet Count 362 X10*3/uL (160-400); Red Blood Count 5.24 X10*6/uL (4.20-5.50); Red Cell Distribution Width 14.4 % (11.0-16.0); White Blood Count 13.5 X10*3/uL (4.8-10.8)
--- NOTE | 2021-06-01 13:15 | ED.CHESTPAIN ---
HPI - Chest Pain General Chief Complaint: General Medical Stated Complaint: chest pain Time Seen by Provider: 06/01/21 10:58 Source: patient Mode of arrival: ambulatory Limitations: no limitations History of Present Illness HPI narrative: 36-year-old female with a past medical history of hypertension and depression presenting to the ED with complaints of midsternal anterior chest pain for the past 3 days worse today. She reports associated nasal congestion/rhinorrhea. She reports it is worse when she takes a deep breath. She denies any dizziness, headache, neck pain/stiffness, sore throat, trouble swallowing or breathing, palpitations, paresthesias, dyspnea on exertion, orthopnea, radiation of the chest pain, rashes, recent falls or trauma, history of cocaine usage, nausea/vomiting/diarrhea constipation, abdominal pain, back pain, dysuria, hematuria, abnormal vaginal discharge, recent travel or sick contacts, any estrogen usage, history of DVT or PE, history of hypercoagulation disorder, history of PVD, recent illness, recent surgery or immobilization or any other symptoms complaints or concerns at this time. MD complaint: chest pain Onset (ago): day(s) (3) Timing of current episode: constant and still present Prior episodes: No Onset: during rest Pain location: substernal Pain radiation: none Severity: moderate Quality: other (She reports it feels like someone is punching me on my chest .) Relieving factors: nothing Exacerbating factors: inspiration Treatment prior to arrival: none Risk Factors Coronary artery disease risk factors: hypertension Thoracic aortic dissection risk factors: none Related Data On Oral Contraceptives: No Previous Rx's Medication Instructions Recorded acetaminophen 325 mg capsule 650 mg PO Q6H PRN #20 cap 02/08/20 clindamycin HCl 150 mg capsule 150 mg PO TID 7 Days #21 cap 02/08/20 ibuprofen 600 mg tablet 600 mg PO Q8H PRN #20 tab 02/08/20 naproxen 500 mg tablet (Naprosyn) 500 mg PO BID #20 tab 09/18/20 acetaminophen 500 mg tablet 1,000 mg PO QID PRN #14 tab 10/16/20 (Tylenol Extra Strength) ibuprofen 800 mg tablet 800 mg PO Q8H PRN #14 tab 10/16/20 oxycodone 5 mg tablet 5 mg PO Q8H PRN 3 Days #9 tab 10/23/20 cyclobenzaprine 10 mg tablet 10 mg PO Q8H PRN #14 tab 06/01/21 naproxen 500 mg tablet 500 mg PO BID PRN #14 tab 06/01/21 Allergies Allergy/AdvReac Type Severity Reaction Status Date / Time amoxicillin [Amoxicillin] Allergy Mild RASH Verified 06/01/21 01:12 Review of Systems Review of Systems: Constitutional : No Weight loss, No Fever, No Chills, No Night Sweats, No Fatigue, No Malaise ENT/Mouth : + nasal congestion/rhinorrhea, No Hearing loss, No Ear Pain, No Sinus Pain, No Hoarseness, No sore throat, No Swallowing Difficulty Eyes: No Eye Pain, No Swelling, No Redness, No Foreign Body, No Discharge, No Vision Changes Cardiovascular : + Chest Pain, No SOB, No Dyspnea on Exertion, No Orthopnea, No Edema, No Palpitations Respiratory : No Cough, No Sputum, No Wheezing, No Smoke Exposure, No Dyspnea Gastrointestinal : No Nausea, No Vomiting, No Diarrhea, No Constipation, No abdominal Pain, No Hematochezia, No Melena Genitourinary : no irregular bleeding, No Dysuria, No Urinary Frequency, No Hematuria, No Urinary Incontinence, No Urgency, No Flank Pain, No Urinary Flow Changes, No Hesitancy Musculoskeletal : No joint pain, No Myalgias, No Joint Swelling Skin : No Skin Lesions, No rash Neuro : No Weakness, No Numbness, No Paresthesias, No Loss of Consciousness, No Dizziness, No Headache Psych : No Anxiety/Panic, No Depression, No SI/HI/AH/VH, No Social Issues, Heme/Lymph: No Bruising, No Bleeding,No Lymphadenopathy Endocrine : No Polyuria, No Polydipsia, No Temperature Intolerance Yes all other systems are reviewed and are negative [facility] Past Medical History Attestation statement: The following information was validated with the patient. Surgical History Hx of cholecystectomy Previous section Social History Social History Substance Use Type: Crack/Cocaine and Marijuana Advance Directives: No Advance Directives Information Provided: No Physical Exam Vital Signs: Vital Signs: Last Vital Signs Temp 98.6 F 06/01/21 10:27 Pulse 93 06/01/21 10:27 Resp 18 06/01/21 10:27 BP 123/75 06/01/21 10:27 Pulse Ox 99 06/01/21 10:27 BMI result Body Mass Index 49.6 vital signs have been reviewed as normal and appeared to be correct. Blood pressure normal. Heart rate normal. Respiration rate normal. Temperature normal. Oxygen saturation normal. Appearance: Alert. Oriented X3. No acute distress. Head: Normal external exam. Normocephalic. Atraumatic. Eyes: PERRLA. EOMI. Conjunctiva and sclera normal. Eyelids normal. ENT: Pharynx normal. Uvula midline. Moist mucous membranes. No lesions/ulcerations or masses noted on the tongue. Normal voice. No trismus noted. No drooling noted. No muffled voice noted. Neck: Normal inspection. Neck supple. FROM. No adenopathy. Thyroid Normal. No tracheal deviation noted. No crepitus is noted. No meningeal signs. No neck mass noted. No signs of trauma noted. CVS: Normal heart rate and rhythm. Heart sound normal. Pulses normal throughout. No murmurs/rales/gallops. Respiratory: No respiratory distress. Painless inspiration. Breath sounds normal. No wheezes/rales/rhonchi noted. Chest tenderness up patient to the anterior mid sternal chest. No crepitus is noted. No signs of trauma noted. accessory muscle usage noted or decreased air movement noted. No signs of trauma. No bruising noted. No deformities noted. Abdomen: Soft and nontender. Bowel sounds normal in all 4 quadrants. No distention noted. No organomegaly noted. No visible injury noted. Back: Full range of motion noted. Nontender. No signs of trauma. Patient neuro intact bilaterally and distally on all 4 extremities. Patient's reflexes intact bilaterally and distally on all 4 extremities. No rashes/lesion/induration/fluctuance or signs of infection noted. Skin: Skin warm and dry. Normal skin color. Normal skin turgor. No rashes/lesions/lacerations noted. Extremities: No lower extremity edema. No calf tenderness is noted. Extremities exhibit normal range of motion and nontender. Neuro: Oriented X 3. No motor deficit. No sensory deficit. Reflexes normal. Normal steady gait. No focal neuro deficits noted. CN's II-XII intact bilaterally? Vascular: + radial pulses/+ 2 distal pedal pulses/+2 dorsalis pedis b/l. Normal cap refill. No cyanosis noted to upper extremity nails and lower extremity toes nails. Course Course Course Narrative: 12pm - 36-year-old female with a past medical history of hypertension and depression presenting to the ED with complaints of midsternal anterior chest pain for the past 3 days worse today. She reports associated nasal congestion/rhinorrhea. She reports it is worse when she takes a deep breath. Plan: Will obtain labs, chest x-ray, EKG, COVID Swab, provide naproxen and Flexeril then re-evaluate. Reevaluation(s) Reevaluation #1: - patient 1 elevated white blood cell count at 13,000. Otherwise all other labs are within normal limits including D-dimer and troponin. Patient negative for with serum quant. Her x-ray of her chest is negative. She is negative for COVID. - therefore at this time patient most likely atypical chest pain/viral syndrome will DC home with symptomatic treatment instructions return if any new or worsening symptoms to follow up with primary care provider. Patient understands agrees with this plan. Time: 14:17 [facility] - Chest Pain Medical Records Data Attestation: I reviewed the patient's medical records. Lab Data Attestation: I reviewed the patient's lab results. Result diagrams: 06/01/21 13:05 06/01/21 13:05 Labs: Lab Results 06/01/21 06/01/21 06/01/21 Range/Units 13:05 13:05 13:05 WBC 13.5 H (4.8-10.8) X10*3/uL RBC 5.24 (4.20-5.50) X10*6/uL Hgb 14.1 (12.0-16.0) g/dl Hct 45.2 (37.0-47.0) % MCV 86.3 (80.0-98.0) fL MCH 26.9 L (27.0-33.0) pg MCHC 31.2 (31.0-35.0) g/dl RDW 14.4 (11.0-16.0) % Plt Count 362 (160-400) X10*3/uL MPV 9.3 L (9.4-12.3) fL Immature Gran % (Auto) 0.4 (0.0-0.4) % Neut % (Auto) 66.6 (45-73) % Lymph % (Auto) 22.2 (20-40) % Dickinson % (Auto) 7.3 (2-11) % Eos % (Auto) 3.1 (0-4) % Baso % (Auto) 0.4 (0-2) % Lymph # (Auto) 3.0 (1.2-4.9) X10*3/uL Dickinson # (Auto) 1.0 (0.1-1.2) X10*3/uL Eos # (Auto) 0.4 (0.0-0.4) X10*3/uL Baso # (Auto) 0.1 (0.0-0.2) X10*3/uL Abs Immat Gran (auto) 0.06 H (0.00-0.03) X10*3/uL Absolute Neuts (auto) 9.0 H (2.0-8.3) x10*3/uL Absolute Nucleated RBC 0.000 (0.0-0.012) X10*3/uL Nucleated RBC % (auto) 0.0 (0.0-0.2) /100WBC PT 12.2 (9.9-13.0) SEC INR 1.1 (0.9-1.1) D-Dimer High Sensitivty < 150 NG/ML Sodium 141 (135-145) mmol/L Potassium 4.2 (3.3-5.1) mmol/L Chloride 107 (96-108) mmol/L Carbon Dioxide 25 (22-29) mmol/L Anion Gap 13 (12-20) BUN 13 (9-16) mg/dL Creatinine 0.70 (0.5-1.4) mg/dL Estim Creat Clear Calc 144.2 Estimated GFR > 60 Random Glucose 89 (60-115) mg/dL Calcium 9.2 (8.4-10.2) mg/dL Magnesium 2.1 (1.6-2.6) mg/dL Total Bilirubin 1.0 (0.0-1.0) mg/dL AST 16 (5-31) U/L ALT 22 (0-31) U/L Alkaline Phosphatase 98 (39-117) U/L Troponin I High Sens (<3.5-17.0) ng/L Total Protein 6.9 (6.5-8.0) g/dL Albumin 3.9 (3.5-5.0) g/dL Beta HCG, Quant < 2 mIU/mL COVID-19 ([facility]) (Negative) COVID-19 Clin Com 06/01/21 06/01/21 Range/Units 13:05 13:05 WBC (4.8-10.8) X10*3/uL RBC (4.20-5.50) X10*6/uL Hgb (12.0-16.0) g/dl Hct (37.0-47.0) % MCV (80.0-98.0) fL MCH (27.0-33.0) pg MCHC (31.0-35.0) g/dl RDW (11.0-16.0) % Plt Count (160-400) X10*3/uL MPV (9.4-12.3) fL Immature Gran % (Auto) (0.0-0.4) % Neut % (Auto) (45-73) % Lymph % (Auto) (20-40) % Dickinson % (Auto) (2-11) % Eos % (Auto) (0-4) % Baso % (Auto) (0-2) % Lymph # (Auto) (1.2-4.9) X10*3/uL Dickinson # (Auto) (0.1-1.2) X10*3/uL Eos # (Auto) (0.0-0.4) X10*3/uL Baso # (Auto) (0.0-0.2) X10*3/uL Abs Immat Gran (auto) (0.00-0.03) X10*3/uL Absolute Neuts (auto) (2.0-8.3) x10*3/uL Absolute Nucleated RBC (0.0-0.012) X10*3/uL Nucleated RBC % (auto) (0.0-0.2) /100WBC PT (9.9-13.0) SEC INR (0.9-1.1) D-Dimer High Sensitivty NG/ML Sodium (135-145) mmol/L Potassium (3.3-5.1) mmol/L Chloride (96-108) mmol/L Carbon Dioxide (22-29) mmol/L Anion Gap (12-20) BUN (9-16) mg/dL Creatinine (0.5-1.4) mg/dL Estim Creat Clear Calc Estimated GFR Random Glucose (60-115) mg/dL Calcium (8.4-10.2) mg/dL Magnesium (1.6-2.6) mg/dL Total Bilirubin (0.0-1.0) mg/dL AST (5-31) U/L ALT (0-31) U/L Alkaline Phosphatase (39-117) U/L Troponin I High Sens < 3.5 (<3.5-17.0) ng/L Total Protein (6.5-8.0) g/dL Albumin (3.5-5.0) g/dL Beta HCG, Quant mIU/mL COVID-19 ([facility]) Negative (Negative) COVID-19 Clin Com See Note Imaging Data Chest x-ray: Attestation: I personally reviewed and interpreted this imaging study as follows: Radiologist's impression: FINDINGS: No significant abnormality is noted involving the heart, lungs, mediastinum, bony thorax or soft tissues. XR/XR chest 2V IMPRESSION: Unremarkable examination. ECG Data ECG #1: Attestation: I personally reviewed and interpreted this ECG as follows: ECG interpretation date: 06/01/21 ECG interpretation time: 01:20 Interpretation: Normal sinus rhythm with sinus arrhythmia with a ventricular rate of 69 with LVH no acute ischemic change are noted. Similar compared to prior EKG 10/16/2020. Discharge Plan Discharge Clinical Impression: Atypical chest pain, Chest wall muscle strain Patient Disposition: Home, Self-Care Instructions: Noncardiac Chest Pain (ED), Chest Wall Pain (ED) Prescriptions: New naproxen 500 mg tablet 500 mg PO BID PRN (Reason: pain) Qty: 14 0RF cyclobenzaprine 10 mg tablet 10 mg PO Q8H PRN (Reason: Muscle spasm) Qty: 14 0RF No Action ibuprofen 600 mg tablet 600 mg PO Q8H PRN (Reason: fever or pain) Qty: 20 0RF acetaminophen 325 mg capsule 650 mg PO Q6H PRN (Reason: fever or pain) Qty: 20 0RF clindamycin HCl 150 mg capsule 150 mg PO TID 7 Days Qty: 21 0RF naproxen [Naprosyn] 500 mg tablet 500 mg PO BID Qty: 20 0RF ibuprofen 800 mg tablet 800 mg PO Q8H PRN (Reason: pain) Qty: 14 0RF acetaminophen [Tylenol Extra Strength] 500 mg tablet 1,000 mg PO QID PRN (Reason: fever or pain) Qty: 14 0RF oxycodone 5 mg tablet 5 mg PO Q8H PRN (Reason: pain, severe) 3 Days Qty: 9 0RF Referrals: Physician,None [Primary Care Provider] - 2 days (Your PCP) Stand Alone Forms: Work/School Release Print Language: [place]
[2021-06-01 13:18] LABS: INTERNATIONAL NORM RATIO 1.1 (0.9-1.1); Prothrombin Time 12.2 SEC (9.9-13.0)
[2021-06-01 13:21] LABS: D Dimer High Sensitivity < 150 NG/ML
[2021-06-01 13:26] LABS: COVID-19 Test Negative (Negative)
[2021-06-01 13:28] LABS: Alanine Aminotransferase 22 U/L (0-31); Albumin Level 3.9 g/dL (3.5-5.0); Alkaline Phosphatase 98 U/L (39-117); Anion Gap 13 (12-20); Aspartate Amino Transferase 16 U/L (5-31); Blood Urea Nitrogen 13 mg/dL (9-16); Calcium 9.2 mg/dL (8.4-10.2); Carbon Dioxide 25 mmol/L (22-29); Chloride 107 mmol/L (96-108); Creatinine Clr Calc Pharmacy 144.2; Estimated Glomerular Filt Rate > 60; Glucose Random 89 mg/dL (60-115); Magnesium 2.1 mg/dL (1.6-2.6); Potassium 4.2 mmol/L (3.3-5.1); Sodium 141 mmol/L (135-145); Total Protein 6.9 g/dL (6.5-8.0)
[2021-06-01 13:35] LABS: HCG Quantitative < 2 mIU/mL; Troponin-I High Sensitivity < 3.5 ng/L (<3.5-17.0)
[2021-06-01 14:28] VITALS: RESP 17
== END 2021-06-01 14:30 | disposition home or self-care (01) ==
PROVIDERS: Physician Assistant Medical; Emergency Provider Emergency Medicine
DX: R07.89 Other chest pain (principal); R07.81 Pleurodynia; I10 Essential (primary) hypertension; F33.1 Major depressive disorder, recurrent, moderate; F14.10 Cocaine abuse, uncomplicated; F12.10 Cannabis abuse, uncomplicated; Z20.822 Contact with and (suspected) exposure to COVID-19; Z79.899 Other long term (current) drug therapy
CPT/HCPCS: 71046; 80053; 83735; 84484; 84702; 85025; 85379; 85610; 87635; 99283

== ENCOUNTER 2021-08-30 07:17 | Emergency (ER) | payer OTHER, SELFPAY ==
--- NOTE | ~2021-08-30 | XR_ITS ---
EXAMINATION: XR KNEE, RIGHT CLINICAL INFORMATION: Fall and pain COMPARISON: None TECHNIQUE: Four views of the right knee. FINDINGS: There is moderate suprapatellar joint effusion. There are no loose bodies or bony erosive changes. The tricompartment joint space is maintained normal. There is a sclerotic density proximal tibia most likely large bone island. The soft tissues are normal. XR/XR knee RT 2V IMPRESSION: Moderate suprapatellar joint effusion without visible acute fracture, dislocation or subluxation.
[2021-08-30 07:45] VITALS: BP 132/66; PULSE 73; RESP 18; TEMP 36.9; O2SAT 99; BMI 47.8
--- NOTE | 2021-08-30 08:07 | ED_ITS ---
HPI - General Adult General Chief complaint: Extremity Injury, Lower Stated complaint: fall/swollen leg Time Seen by Provider: 08/30/21 08:07 Source: patient Mode of arrival: ambulatory Limitations: no limitations History of Present Illness HPI narrative: Patient is a 36 year old female presenting to the emergency department today with right knee pain after a fall. Patient states that she fell down 3 steps yesterday. Patient denies hitting her head with the incident. Patient denies any loss of consciousness with the incident. Patient denies any dizziness, lightheadedness, abdominal pain, nausea, vomiting, fever, chills, blurry vision, double vision, loss of vision, chest pain, difficulty breathing, shortness of breath, back pain, night sweats, pain with urination, increased urinary frequency, increased urinary urgency, blood in her urine or stool, syncope or a near syncopal episode, bowel incontinence, bladder incontinence, bowel retention, bladder retention, or any other complaints at this time. Onset (ago): day(s) (1) Location: right and lower extremity Radiation: non-radiation Severity: mild Severity scale (1-10): 4 Quality: dull Pain Consistency: constant Relieving factors: none Exacerbating factors: movement Associated symptoms: denies other symptoms Treatments prior to arrival: none Related Data Previous Rx's Medication Instructions Recorded acetaminophen 325 mg capsule 650 mg PO Q6H PRN #20 cap 02/08/20 clindamycin HCl 150 mg capsule 150 mg PO TID 7 Days #21 cap 02/08/20 ibuprofen 600 mg tablet 600 mg PO Q8H PRN #20 tab 02/08/20 naproxen 500 mg tablet (Naprosyn) 500 mg PO BID #20 tab 09/18/20 acetaminophen 500 mg tablet 1,000 mg PO QID PRN #14 tab 10/16/20 (Tylenol Extra Strength) ibuprofen 800 mg tablet 800 mg PO Q8H PRN #14 tab 10/16/20 oxycodone 5 mg tablet 5 mg PO Q8H PRN 3 Days #9 tab 10/23/20 cyclobenzaprine 10 mg tablet 10 mg PO Q8H PRN #14 tab 06/01/21 naproxen 500 mg tablet 500 mg PO BID PRN #14 tab 06/01/21 acetaminophen 500 mg tablet 500 mg PO Q6H PRN #30 tab 08/30/21 (Tylenol Extra Strength) Allergies Allergy/AdvReac Type Severity Reaction Status Date / Time amoxicillin [Amoxicillin] Allergy Mild RASH Verified 06/01/21 01:12 Review of Systems Constitutional: Constitutional: Reports no additional constitutional complaints, Denies chills, Denies fever(s) and Denies night sweats Eyes: Eyes: Reports no additional eye complaints, Denies blurry vision, Denies change in vision, Denies diplopia, Denies eye discharge, Denies loss of vision and Denies eye pain ENT: Denies dizziness Cardiovascular: Cardiovascular: Reports no additional cardiovascular complaints, Denies chest pain, Denies lightheadedness, Denies Loss of Consciousness and Denies dyspnea Respiratory: Respiratory: Reports no additional respiratory complaints and Denies dyspnea Gastrointestinal: Gastrointestinal: Reports no additional gastrointestinal complaints, Denies abdominal pain, Denies melena, Denies hematochezia, Denies change in bowel habits and Denies change in stool character Genitourinary: Genitourinary: Denies hematuria, Denies urinary frequency, Denies dysuria, Denies urinary incontinence, Denies urinary hesitancy and Denies urinary urgency Musculoskeletal: Musculoskeletal: Reports no additional musculoskeletal complaints, Denies numbness and Denies tingling Comments: right knee pain Neurologic: Denies dizziness, Denies loss of vision, Denies numbness and Denies tingling Psychiatric: Psychiatric: Reports no additional psychiatric complaints Endocrine: Endocrine: Reports no additional endocrine complaints Hematologic/Lymphatic: Hematologic/Lymphatic: Reports no additional hematologic/lymphatic complaints Allergic/Immunologic: Allergic/Immunologic: Reports no additional allergic/immunologic complaints PMFSH Past Medical History Attestation statement: The following information was validated with the patient. Source: old records reviewed Surgical History Hx of cholecystectomy Previous section Social History Social History Substance Use Type: Crack/Cocaine and Marijuana Advance Directives: No Advance Directives Information Provided: No Physical Exam ED Vital Signs: Vital Signs - 24 hr 08/30/21 07:45 Temperature 98.4 F Pulse Rate 73 Respiratory Rate 18 Blood Pressure 132/66 Pulse Oximetry 99 BMI result Body Mass Index 47.8 Const General: cooperative, no acute distress, alert and awake Nutritional Appearance: well nourished Orientation/consciousness: patient oriented x3 Limitations: no limitations HENMT Head: Yes normal to inspection and Yes atraumatic Ears: hearing grossly normal bilaterally and external ears normal General nose exam: Normal external nose present, no nasal discharge noted and no epistaxis Face and sinus: Yes normal facial exam, No abrasion and No laceration Mouth: Normal oral and palatal mucosa present, no drooling and no muffled voice Eyes General: appearance normal, both eyes and all related structures Periorbital: periorbital findings normal Eyelids: Yes eyelids normal Conjunctivae: conjunctivae normal Pupils: Equal, round and reactive pupils present EOM: EOMs intact bilaterally Neck Neck: Yes normal visual inspection, Yes full ROM and Yes no lymphadenopathy Chest Chest palpation & inspection: normal inspection of the chest Resp Effort & Inspection: normal respiratory effort and able to speak in complete sentences Auscultation: clear to auscultation bilaterally Cardio Rate: regular rate Rhythm: regular rhythm GI Inspection: Yes normal to inspection Neuro General: patient oriented x3 and moves all extremities Cranial nerves: Yes Equal, round and reactive pupils present Cognition (Neuro): normal cognition Motor exam (neuro): 5/5 motor strength present throughout Sensory Exam: Normal double simultaneous stimulation for sensation Coordination: [id number] test normal Extrem Other: mild bruising to the medial aspect of the right knee General: Yes full ROM and Yes capillary refill normal Psych Appearance: grossly normal Mental Status: mental status grossly normal Affect: normal affect Attitude: cooperative Thought process: Normal thought process present Thought content: Normal thought content present Insight: Good insight present (Psych) Medical Decision Making MDM Narrative Medical decision making narrative: Patient is a 36 year old female presenting to the emergency department today w ith right knee pain. Patient's physical exam showed minimal bruising to the medial aspect of the right knee but was otherwise unremarkable. Patient's ROM, circulation, strength, and sensation were present and intact to the entire right lower extremity. Patient's right knee x-ray showed a moderate suprapetellar joint effusion without visible acute fracture. I explained my physical exam findings as well as all test results to the patient. I answered all questions asked by the patient. Patient received PO [place] which she stated helped her pain significantly. I stressed the importance of the patient taking her medication as prescribed. I stressed the importance of the patient following up with her primary care provider. I stressed the importance of the patient returning to the emergency department immediately if her symptoms were to worsen or if she were to develop any dizziness, shortness of breath, difficulty breathing, chest pain, blurry vision, loss of vision, nausea, vomiting, abdominal pain, fever, chills, back pain, or any other complaints. Patient verbalized agreement and understanding with this treatment plan and discharge. Differential Diagnosis Differential Diagnosis: hematoma, joint effusion, knee injury Medical Records Medical records reviewed: Yes I reviewed the patient's medical records. Imaging Data Right knee x-ray: Attestation: I personally reviewed and interpreted this imaging study as follows: My impression: No acute fracture. Radiologist's impression: EXAMINATION: XR KNEE, RIGHT? CLINICAL INFORMATION: Fall and pain? COMPARISON: None? TECHNIQUE: Four views of the right knee. FINDINGS: There is moderate suprapatellar joint effusion. There are no loose bodies or bony erosive changes. The tricompartment joint space is maintained normal. There is a sclerotic density proximal tibia most likely large bone island. The soft tissues are normal.? XR/XR knee RT 2V IMPRESSION: Moderate suprapatellar joint effusion without visible acute fracture, dislocation or subluxation. Dictated By: Hermelindo Pickett MD Signed By: Electronically signed by Hermelindo Pickett MD 08/30/21 0906 Discharge Plan Discharge Clinical Impression: Acute knee pain Patient Disposition: Home, Self-Care Instructions: Knee Pain (ED) Additional Instructions: Follow up with your primary care provider. Return to the emergency department immediately if your symptoms worsen or if you develop any dizziness, shortness of breath, difficulty breathing, chest pain, blurry vision, loss of vision, nausea, vomiting, abdominal pain, fever, chills, back pain, or any other complaints. Prescriptions: New acetaminophen [Tylenol Extra Strength] 500 mg tablet 500 mg PO Q6H PRN (Reason: fever) Qty: 30 0RF No Action ibuprofen 600 mg tablet 600 mg PO Q8H PRN (Reason: fever or pain) Qty: 20 0RF acetaminophen 325 mg capsule 650 mg PO Q6H PRN (Reason: fever or pain) Qty: 20 0RF clindamycin HCl 150 mg capsule 150 mg PO TID 7 Days Qty: 21 0RF naproxen [Naprosyn] 500 mg tablet 500 mg PO BID Qty: 20 0RF ibuprofen 800 mg tablet 800 mg PO Q8H PRN (Reason: pain) Qty: 14 0RF acetaminophen [Tylenol Extra Strength] 500 mg tablet 1,000 mg PO QID PRN (Reason: fever or pain) Qty: 14 0RF oxycodone 5 mg tablet 5 mg PO Q8H PRN (Reason: pain, severe) 3 Days Qty: 9 0RF naproxen 500 mg tablet 500 mg PO BID PRN (Reason: pain) Qty: 14 0RF cyclobenzaprine 10 mg tablet 10 mg PO Q8H PRN (Reason: Muscle spasm) Qty: 14 0RF Referrals: Ann Murray MD [Primary Care Provider] - Interventions: ED Discharge Assessment Last Done: 08/30/21 09:41 Discharge Date/Time: 08/30/21 09:43 Print Language: Ma[place]
[2021-08-30] MEDS: HYDROcodone Bit/Acetam 5/325 TABLET 1 TAB PO (09:39)
== END 2021-08-30 09:43 | disposition home or self-care (01) ==
PROVIDERS: Emergency Provider Emergency Medicine Emergency Medical Services; PCP Internal Medicine
DX: M25.561 Pain in right knee (principal); M25.461 Effusion, right knee
CPT/HCPCS: 73560; 99283

== ENCOUNTER 2021-11-18 07:21 | Emergency (ER) | payer OTHER, SELFPAY ==
[2021-11-18 07:35] VITALS: BP 128/65; PULSE 66; RESP 18; TEMP 36.3; O2SAT 98; BMI 46.0
--- NOTE | 2021-11-18 07:57 | ED_ITS ---
HPI - URI/Sore Throat General Chief Complaint: Upper Respiratory Symptoms Stated Complaint: Strep throat Time Seen by Provider: 11/18/21 07:57 Source: patient Mode of arrival: ambulatory History of Present Illness HPI Narrative: 36-year-old female with sore throat and noticing that her ?lymph nodes are swollen?, denies any cough has had subjective fevers but otherwise denies shortness of breath, chest pain/palpitations. Related Data Previous Rx's Medication Instructions Recorded acetaminophen 325 mg capsule 650 mg PO Q6H PRN fever or pain 02/08/20 #20 caps clindamycin HCl 150 mg capsule 150 mg PO TID 7 days #21 caps 02/08/20 ibuprofen 600 mg tablet 600 mg PO Q8H PRN fever or pain 02/08/20 #20 tabs naproxen 500 mg tablet (Naprosyn) 500 mg PO BID #20 tabs 09/18/20 acetaminophen 500 mg tablet 1,000 mg PO QID PRN fever or pain 10/16/20 (Tylenol Extra Strength) #14 tabs ibuprofen 800 mg tablet 800 mg PO Q8H PRN pain #14 tabs 10/16/20 oxycodone 5 mg tablet 5 mg PO Q8H PRN pain, severe 3 10/23/20 days #9 tabs cyclobenzaprine 10 mg tablet 10 mg PO Q8H PRN Muscle spasm #14 06/01/21 tabs naproxen 500 mg tablet 500 mg PO BID PRN pain #14 tabs 06/01/21 acetaminophen 500 mg tablet 500 mg PO Q6H PRN fever #30 tabs 08/30/21 (Tylenol Extra Strength) Allergies Allergy/AdvReac Type Severity Reaction Status Date / Time amoxicillin [Amoxicillin] Allergy Mild RASH Verified 06/01/21 01:12 Review of Systems Review of Systems: Pertinent positives and negatives as stated in HPI 10 point review of systems is otherwise negative. [facility] Past Medical History Source: nursing notes reviewed Surgical History Hx of cholecystectomy Previous section Social History Social History Substance Use Type: Crack/Cocaine and Marijuana Advance Directives: No Advance Directives Information Provided: No Physical Exam Vital Signs: Vital Signs: Last Vital Signs Temp 97.4 F 11/18/21 07:35 Pulse 66 11/18/21 07:35 Resp 18 11/18/21 07:35 BP 128/65 11/18/21 07:35 Pulse Ox 98 11/18/21 07:35 O2 Del Method 11/18/21 07:35 BMI result Body Mass Index 46.0 VITAL SIGNS: Reviewed. GENERAL: Well developed, well nourished, in no acute distress. HEAD: Normocephalic/atraumatic EYES: PERRLA, EOMI EARS: Ext canals without abnormality OROPHARYNX: no oral lesions noted, posterior pharynx clear and erythematous with noted tonsillar enlargement/erythema/exudates, no trismus NECK: Supple, + adenopathy LUNGS: Normal breath sounds. No adventitious sounds or accessory muscle use. SpO2<98> CARDIOVASCULAR: Regular rate and rhythm without noted murmurs ABDOMEN: Soft, non-tender, non-distended with bowel sounds. MUSCULOSKELETAL: No tenderness, deformities, or effusions noted on gross inspection. EXTREMITIES: No cyanosis, clubbing or edema. SKIN: Inspection of the skin reveals no rashes NEUROLOGIC: Alert and oriented x 4. Strength and sensation to light touch were grossly intact x 4. Course Course Course Narrative: 36-year-old female with history and clinical presentation most consistent with strep pharyngitis, will strep as well as COVID-19 checked. Review of all investigations otherwise negative for acute findings, these results were discussed with patient bed sinus she was discharged home with presumptive viral pharyngitis. MDM - URI/Sore Throat Lab Data Labs: Lab Results 11/18/21 11/18/21 11/18/21 Range/Units 07:52 07:52 08:56 COVID-19 (BRIGITTE) Negative (Negative) COVID-19 Clin Com See Note Monoscreen Negative (Negative) S. pyogenes GrpA NGOZI Negative (Negative) Discharge Plan Discharge Clinical Impression: Pharyngitis Patient Disposition: Home, Self-Care Instructions: Pharyngitis (ED) Additional Instructions: 1. Recommend [id number] Tylenol/ibuprofen as needed for pain control. 2. Recommend saline gargles (warm tap water mixed with table salt), gargle for 5 minutes, 3 to 4 times a day. Also, recommend that you can use [id number] Cepacol for additional throat relief. 3. Follow-up with your primary care provider next 1-2 days. Return to the ER for worsening symptoms. Prescriptions: No Action ibuprofen 600 mg tablet 600 mg PO Q8H PRN (Reason: fever or pain) Qty: 20 0RF acetaminophen 325 mg capsule 650 mg PO Q6H PRN (Reason: fever or pain) Qty: 20 0RF clindamycin HCl 150 mg capsule 150 mg PO TID 7 Days Qty: 21 0RF naproxen [Naprosyn] 500 mg tablet 500 mg PO BID Qty: 20 0RF ibuprofen 800 mg tablet 800 mg PO Q8H PRN (Reason: pain) Qty: 14 0RF acetaminophen [Tylenol Extra Strength] 500 mg tablet 1,000 mg PO QID PRN (Reason: fever or pain) Qty: 14 0RF oxycodone 5 mg tablet 5 mg PO Q8H PRN (Reason: pain, severe) 3 Days Qty: 9 0RF naproxen 500 mg tablet 500 mg PO BID PRN (Reason: pain) Qty: 14 0RF cyclobenzaprine 10 mg tablet 10 mg PO Q8H PRN (Reason: Muscle spasm) Qty: 14 0RF acetaminophen [Tylenol Extra Strength] 500 mg tablet 500 mg PO Q6H PRN (Reason: fever) Qty: 30 0RF Referrals: Ann Murray MD [Primary Care Provider] - Stand Alone Forms: Work/School Release
[2021-11-18 08:12] LABS: COVID-19 Test Negative (Negative); IDNOW Serial# 55D5AD1C
[2021-11-18 08:14] LABS: Strep A Nucleic Acid Negative (Negative)
[2021-11-18] MEDS: Throat Lozenge, Medicated LOZENGE 1 LOZENGE MUCOUS MEM (08:19)
[2021-11-18] MEDS: Acetaminophen 325 MG TABLET 975 MG PO (08:19)
[2021-11-18] MEDS: Ibuprofen 400 MG TABLET PO (08:19)
[2021-11-18 09:25] LABS: Monotest Negative (Negative)
== END 2021-11-18 11:22 | disposition home or self-care (01) ==
PROVIDERS: Emergency Provider Student in an Organized Health Care Education/Training Program; PCP Internal Medicine
DX: J02.9 Acute pharyngitis, unspecified (principal); Z20.822 Contact with and (suspected) exposure to COVID-19
CPT/HCPCS: 36415; 86308; 87635; 87651; 99283

== ENCOUNTER 2022-04-03 19:48 | Emergency (ER) | payer OTHER, SELFPAY ==
[2022-04-03 19:50] VITALS: BP 125/76; PULSE 87; RESP 16; TEMP 36.6; O2SAT 98; BMI 53.1
--- NOTE | 2022-04-03 19:50 | ED.GENADULT ---
HPI - General Adult General Chief complaint: Chest Pain <HAYDER Brody - Last Filed: 04/03/22 19:53> Stated complaint: Covid +, chest pain/discomfort <HAYDER Brody - Last Filed: 04/03/22 19:53> Time Seen by Provider: 04/03/22 21:54 <HAYDER Brody - Last Filed: 04/03/22 19:53> Source: patient <Carla Samano NP - Last Filed: 04/04/22 01:03> Mode of arrival: ambulatory <Carla Samano NP - Last Filed: 04/04/22 01:03> Limitations: no limitations <Carla Samano NP - Last Filed: 04/04/22 01:03> History of Present Illness HPI narrative: 37-year-old female presents for evaluation for burning chest discomfort. Patient was diagnosed with COVID on 03/31/2022 and states that her symptoms have not alleviated. Her chest petersen when she breathes, and hurts when she coughs. <Carla Samano NP - Last Filed: 04/04/22 01:03> Onset (ago): week(s) <Carla Samano NP - Last Filed: 04/04/22 01:03> Location: chest <Carla Samano NP - Last Filed: 04/04/22 01:03> Radiation: non-radiation <Carla Samano NP - Last Filed: 04/04/22 01:03> Severity: moderate <Carla Samano NP - Last Filed: 04/04/22 01:03> Severity scale (1-10): 6 <Carla Samano NP - Last Filed: 04/04/22 01:03> Quality: burning <Carla Samano NP - Last Filed: 04/04/22 01:03> Pain Consistency: intermittent <Carla Samano NP - Last Filed: 04/04/22 01:03> Relieving factors: none <Carla Samano NP - Last Filed: 04/04/22 01:03> Exacerbating factors: other (Coughing) <Carla Samano NP - Last Filed: 04/04/22 01:03> Associated symptoms: chest pain, cough, fever/chills and malaise <Carla Samano NP - Last Filed: 04/04/22 01:03> Treatments prior to arrival: none <Carla Samano NP - Last Filed: 04/04/22 01:03> Related Data Home medications: Previous Rx's Medication Instructions Recorded acetaminophen 325 mg capsule 650 mg PO Q6H PRN fever or pain 02/08/20 #20 caps clindamycin HCl 150 mg capsule 150 mg PO TID 7 days #21 caps 02/08/20 ibuprofen 600 mg tablet 600 mg PO Q8H PRN fever or pain 02/08/20 #20 tabs naproxen 500 mg tablet (Naprosyn) 500 mg PO BID #20 tabs 09/18/20 acetaminophen 500 mg tablet 1,000 mg PO QID PRN fever or pain 10/16/20 (Tylenol Extra Strength) #14 tabs ibuprofen 800 mg tablet 800 mg PO Q8H PRN pain #14 tabs 10/16/20 oxycodone 5 mg tablet 5 mg PO Q8H PRN pain, severe 3 10/23/20 days #9 tabs cyclobenzaprine 10 mg tablet 10 mg PO Q8H PRN Muscle spasm #14 06/01/21 tabs naproxen 500 mg tablet 500 mg PO BID PRN pain #14 tabs 06/01/21 acetaminophen 500 mg tablet 500 mg PO Q6H PRN fever #30 tabs 08/30/21 (Tylenol Extra Strength) <HAYDER Brody - Last Filed: 04/03/22 19:53> Allergies/adverse reactions: Allergies Allergy/AdvReac Type Severity Reaction Status Date / Time amoxicillin [Amoxicillin] Allergy Mild RASH Verified 06/01/21 01:12 <HAYDER Brody - Last Filed: 04/03/22 19:53> Review of Systems Review of Systems: Constitutional: positive Fever, positive Chills, positive fatigue, positive Malaise ENT/Mouth: positive sore throat, positive runny nose Eyes: No Discharge Cardiovascular: Positive burning chest discomfort, No SOB Respiratory: Positive Cough, No Sputum, No Wheezing, No Dyspnea Gastrointestinal: No Nausea, No Vomiting, No Diarrhea Musculoskeletal: positive Myalgia Skin: No rash Neuro: No Headache <Carla Samano NP - Last Filed: 04/04/22 01:03> Yes all other systems are reviewed and are negative <Carla Samano NP - Last Filed: 04/04/22 01:03> [facility] Past Medical History Attestation statement: The following information was validated with the patient. <Carla Samano NP - Last Filed: 04/04/22 01:03> Source: old records reviewed <Carla Samano NP - Last Filed: 04/04/22 01:03> Surgical History: Surgical History Hx of cholecystectomy Previous section <HAYDER Brody - Last Filed: 04/03/22 19:53> Social History Social History: Social History Substance Use Type: Crack/Cocaine and Marijuana Advance Directives: No Advance Directives Information Provided: Yes <HAYDER Brody - Last Filed: 04/03/22 19:53> Physical Exam ED Vital Signs: Vital Signs - 24 hr 04/03/22 19:50 Temperature 97.8 F Pulse Rate 87 Respiratory Rate 16 Blood Pressure 125/76 Pulse Oximetry 98 Oxygen Delivery Method Room Air BMI result Body Mass Index 53.1 <HAYDER Brody - Last Filed: 04/03/22 19:53> Vital Signs - 24 hr 04/03/22 19:50 Temperature 97.8 F Pulse Rate 87 Respiratory Rate 16 Blood Pressure 125/76 Pulse Oximetry 98 Oxygen Delivery Method Room Air BMI result Body Mass Index 53.1 <Carla Samano NP - Last Filed: 04/04/22 01:03> Appearance: Alert. Oriented X3. No acute distress. Eyes: Pupils equal, round and reactive to light. ENT: Pharynx normal. Neck: Normal inspection. Neck supple. CVS: Normal heart rate and rhythm. Pulses normal. Respiratory: No respiratory distress. Breath sounds normal. Skin: Skin warm and dry. Normal skin color. Normal skin turgor. Extremities: Gait well-balanced well coordinated. Neuro: No motor deficit. No sensory deficit. Cranial nerves 2-12 intact. <Carla Samano NP - Last Filed: 04/04/22 01:03> Course Course Course Narrative: RME - 37 yo female with history of morbid obesity, depression who presents to the ER with chest discomfort associated with coughing and not feeling well for the last 3 weeks. Tested positive for COVID 2 days ago. Unvaccinated. SpO2 98%, HR 70s and lungs clear on exam. Doubt PE. Pain involves the entire chest wall and is constant. Will check CXR to r/o COVID PNA. Doubt PE given not tachycardic or hypoxic, PERC negative. <HAYDER Brody - Last Filed: 04/03/22 19:53> RME - 37 yo female with history of morbid obesity, depression who presents to the ER with chest discomfort associated with coughing and not feeling well for the last 3 weeks. Tested positive for COVID 2 days ago. Unvaccinated. SpO2 98%, HR 70s and lungs clear on exam. Doubt PE. Pain involves the entire chest wall and is constant. Will check CXR to r/o COVID PNA. Doubt PE given not tachycardic or hypoxic, PERC negative. 21:56 negative chest x-ray. I did discuss supportive measures with this patient, did offer albuterol inhaler which she accepted. Patient does understand that COVID symptoms can last for several months. Patient verbalized understanding of and agrees to plan of care discharge home. <Carla Samano NP - Last Filed: 04/04/22 01:03> Medications Administered Discontinued Medications Generic Name Dose Route Start Last Admin Trade Name Freq PRN Reason Stop Dose Admin Albuterol Sulfate 2 puff 04/03/22 22:01 04/03/22 22:13 Albuterol Sulfate 90 Mcg 8 Gm Inhaler INHALE 04/03/22 22:02 2 puff ONCE ONE Administration <HAYDER Brody - Last Filed: 04/03/22 19:53> Medications Administered Discontinued Medications Generic Name Dose Route Start Last Admin Trade Name Freq PRN Reason Stop Dose Admin Albuterol Sulfate 2 puff 04/03/22 22:01 04/03/22 22:13 Albuterol Sulfate 90 Mcg 8 Gm Inhaler INHALE 04/03/22 22:02 2 puff ONCE ONE Administration <Carla Samano NP - Last Filed: 04/04/22 01:03> Medical Decision Making Differential Diagnosis Differential Diagnoses: The differential diagnosis associated with the presentation includes <Carla Samano NP - Last Filed: 04/04/22 01:03> COVID, influenza, RSV, pneumonia, bronchitis <Carla Samano NP - Last Filed: 04/04/22 01:03> Admission/Observation Consideration of admission/observation: Escalation of care including admission/observation considered <Carla Samano NP - Last Filed: 04/04/22 01:03> Patient does not require admission <Carla Samano NP - Last Filed: 04/04/22 01:03> Independent Interpretation I performed an independent interpretation of an: Plain X-Ray <Carla Samano NP - Last Filed: 04/04/22 01:03> Radiology Impression Discussion of test interpretation with radiology: I have reviewed the radiologist's reading. <Carla Samano NP - Last Filed: 04/04/22 01:03> Radiologist Impression: EXAMINATION: XR CHEST CLINICAL INFORMATION: Chest pain. Covid. COMPARISON: June 01, 2021 TECHNIQUE: 2 views of the chest were obtained. FINDINGS: No significant abnormality is noted involving the heart, lungs, mediastinum, bony thorax or soft tissues. XR/XR chest 2V IMPRESSION: No acute disease. <Carla Samano NP - Last Filed: 04/04/22 01:03> Prescription Management I considered prescription management with: Other (Albuterol) <Carla Samano NP - Last Filed: 04/04/22 01:03> Discharge Plan Discharge Clinical Impression: COVID-19, Chest discomfort <HAYDER Brody - Last Filed: 04/03/22 19:53> Patient Disposition: Home, Self-Care <HAYDER Brody - Last Filed: 04/03/22 19:53> Instructions: Noncardiac Chest Pain (ED), COVID-19 (Coronavirus Disease 2019) (ED) <HAYDER Brody - Last Filed: 04/03/22 19:53> Additional Instructions: You were evaluated for noncardiac chest pain. Your symptoms are consistent with COVID-19. Your chest x-ray is negative for acute findings. Use albuterol inhaler as needed for shortness of breath. Continue with supportive measures. Thank you for choosing this emergency department for evaluation. Please follow-up with primary care physician as needed. Return to the emergency department for any new, concerning, or worsening symptoms. <HAYDER Brody - Last Filed: 04/03/22 19:53> Prescriptions: No Action ibuprofen 600 mg tablet 600 mg PO Q8H PRN (Reason: fever or pain) Qty: 20 0RF acetaminophen 325 mg capsule 650 mg PO Q6H PRN (Reason: fever or pain) Qty: 20 0RF clindamycin HCl 150 mg capsule 150 mg PO TID 7 Days Qty: 21 0RF naproxen [Naprosyn] 500 mg tablet 500 mg PO BID Qty: 20 0RF ibuprofen 800 mg tablet 800 mg PO Q8H PRN (Reason: pain) Qty: 14 0RF acetaminophen [Tylenol Extra Strength] 500 mg tablet 1,000 mg PO QID PRN (Reason: fever or pain) Qty: 14 0RF oxycodone 5 mg tablet 5 mg PO Q8H PRN (Reason: pain, severe) 3 Days Qty: 9 0RF naproxen 500 mg tablet 500 mg PO BID PRN (Reason: pain) Qty: 14 0RF cyclobenzaprine 10 mg tablet 10 mg PO Q8H PRN (Reason: Muscle spasm) Qty: 14 0RF acetaminophen [Tylenol Extra Strength] 500 mg tablet 500 mg PO Q6H PRN (Reason: fever) Qty: 30 0RF <HAYDER Brody - Last Filed: 04/03/22 19:53> Interventions: ED Discharge Assessment Last Done: 04/03/22 22:15 <HAYDER Brody - Last Filed: 04/03/22 19:53> Discharge Date/Time: 04/03/22 22:16 <HAYDER Brody - Last Filed: 04/03/22 19:53>
== END 2022-04-03 22:16 | disposition home or self-care (01) ==
PROVIDERS: Emergency Provider Emergency Medicine; PCP Internal Medicine
DX: U07.1 COVID-19 (principal); R07.89 Other chest pain; Z79.899 Other long term (current) drug therapy
CPT/HCPCS: 71046; 99282; 99284

== ENCOUNTER 2023-02-07 20:56 | Emergency (ER) | payer OTHER, SELFPAY ==
[2023-02-07 21:23] VITALS: BP 125/60; PULSE 109; O2SAT 98; BMI 29.0
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
== END 2023-02-07 21:59 | disposition home or self-care (01) ==
PROVIDERS: Emergency Provider Internal Medicine
DX: S79.912A Unspecified injury of left hip, initial encounter (principal); M25.552 Pain in left hip; V43.52XA Car driver injured in collision with other type car in traffic accident, initial encounter; Y93.9 Activity, unspecified; Y92.410 Unspecified street and highway as the place of occurrence of the external cause; Y99.9 Unspecified external cause status; Z79.899 Other long term (current) drug therapy
CPT/HCPCS: 99284

== ENCOUNTER 2023-07-26 | Outpatient (REF) | payer OTHER, SELFPAY ==
[2023-07-27 11:15] LABS: Influenza A PCR NEGATIVE (Negative); Influenza B PCR NEGATIVE (Negative); Resp Syncy Virus RNA Qual PCR NEGATIVE (Negative); SARS COV2 PCR INHOUSE NEGATIVE (Negative)
== END 2023-07-26 00:01 | disposition home or self-care (01) ==
LOC: HO.HMGCLNP
PROVIDERS: Visit Provider Registered Nurse Emergency
DX: J06.9 Acute upper respiratory infection, unspecified (principal)
CPT/HCPCS: 0241U

== ENCOUNTER 2023-07-26 16:02 | Outpatient (AMB) | payer OTHER, SELFPAY ==
[2023-07-26 16:07] VITALS: BP 122/76; PULSE 76; TEMP 36.7; O2SAT 98
--- NOTE | 2023-07-26 16:07 | AM.OFFWIN_ITS ---
Intake Vital Signs 07/26/23 16:07 Height 5 ft 6 in BMI Reason not done Patient refused/unable BP 122/76 Blood Pressure Location Rt brachial Position Sitting Pulse 76 Pulse Source Pulse Oximeter Temp 98.1 F Temp Source Oral Pulse Oximetry (%) 98 Oxygen Delivery Method Room Air Intake Visit Reasons: EP Strep throat cough Intake Note: pt is here for cough, and possible strep Patient Tobacco Use Status: Never used Tobacco Allergies amoxicillin [Amoxicillin] Allergy (Mild, Verified 07/26/23 16:07) RASH Do you need a note to return to daycare/school/sports/work: Yes HPI HPI Comments History of Present Illness Details Patient presents to the walk in for sick visit Endorses 3 days cough, congestion, sore throat and wheezing Has felt hot and cold, but has not checked her temperature Denies fever, chest pain, shortness of breath, palpitations, syncope, weakness Using albuterol MDI at home with some improvement, requesting refill [facility] Surgical History Hx of cholecystectomy Previous section Social History Patient Tobacco Use Status: Never used Tobacco Substance Use Type: Crack/Cocaine and Marijuana Review of Systems Const All systems reviewed & are unremarkable except as noted in HPI and below Physical Exam Vital Signs: Last Vital Signs Temp 98.1 F 07/26/23 16:07 Pulse 76 07/26/23 16:07 BP 122/76 07/26/23 16:07 Pulse Ox 98 07/26/23 16:07 Oxygen Delivery Method Room Air 07/26/23 16:07 General: awake, alert, oriented. Answers questions appropriately. Fully engaged in examination. Skin: warm, dry, intact HEENT: TMs intact bilaterally, no redness. Posterior pharynx without erythema or exudate, notable for large tonsils bilaterally. Sclera without icterus or injection. Cardiac: External chest normal in appearance. Respiratory: +cough. Diffuse wheezing throughout Abdomen: without gross distension. Neurological: Oriented to person, place, time and situation. Thought process intact. Psychiatric: Appropriate mood and affect. Good judgment and insight. Results AMB Rapid Strep AMB Rapid Strep Negative Last Edit by Quincy Drake CMA on 07/26/23 16 :22 Results Reviewed Results Reviewed: Rapid strep negative Assessment & Plan Assessment & Plan (1) URI (upper respiratory infection): Code(s): J06.9 - Acute upper respiratory infection, unspecified Plan URI, no abx warranted. SARS-CoV2/FLU/RSV swab collected, results pending. Patient aware she will be called with results. Benzonatate 100mg po bid as needed Albuterol MDI 4 times daily as needed Prednisone 40 mg p.o. daily x5 days Rest, drink plenty of fluids, tylenol or motrin as needed. Recommend taking OTC nasal decongestants or flonase. Follow up with pcp or in clinic for any new or worsening symptoms. Go to ER for shortness of breath, chest pain, palpitations, weakness, dizziness or if using albuterol inhaler more than prescribed Orders: Orders AMB Rapid Strep Screen Today Z13.9 - Encounter for screening, unspecified SARS-CoV2/FLU/RSV Today J06.9 - Acute upper respiratory infection, unspecified Medications: New prednisone 40 mg (2 x 20 mg) PO DAILY 5 days 10 tabs 0RF benzonatate 100 mg PO BID PRN 20 caps 0RF cough albuterol sulfate 90 mcg/actuation 2 inhalations inhalation Q6H PRN 1 ea 0RF shortness of breath or wheezing Discontinued clindamycin HCl Discontinued Reason: Patient Completed Course 150 mg PO TID 7 days 21 caps 0RF ibuprofen Discontinued Reason: Patient Completed Course 600 mg PO Q8H PRN 20 tabs 0RF fever or pain acetaminophen (Tylenol Extra Strength) Discontinued Reason: Duplicate 1,000 mg (2 x 500 mg) PO QID PRN 14 tabs 0RF fever or pain ibuprofen Discontinued Reason: Patient Completed Course 800 mg PO Q8H PRN 14 tabs 0RF pain acetaminophen Discontinued Reason: Duplicate 650 mg (2 x 325 mg) PO Q6H PRN 20 caps 0RF fever or pain naproxen (Naprosyn) Discontinued Reason: Patient Completed Course 500 mg PO BID 20 tabs 0RF oxycodone Discontinued Reason: Patient Completed Course 5 mg PO Q8H 3 days PRN 9 tabs 0RF pain, severe acetaminophen (Tylenol Extra Strength) Discontinued Reason: Patient Completed Course 500 mg PO Q6H PRN 30 tabs 0RF fever cyclobenzaprine Discontinued Reason: Patient Completed Course 10 mg PO Q8H PRN 14 tabs 0RF Muscle spasm naproxen Discontinued Reason: Patient Completed Course 500 mg PO BID PRN 14 tabs 0RF pain cyclobenzaprine Discontinued Reason: Patient Completed Course 10 mg PO Q8H 20 tabs 0RF ibuprofen Discontinued Reason: Patient Completed Course 600 mg PO Q6H PRN 30 tabs 0RF fever or pain Coding Level of Care Code Est Pt Level 3 (91328) Diagnoses URI (upper respiratory infection) J06.9
== END 2023-07-26 16:30 | disposition home or self-care (01) ==
PROVIDERS: Visit Provider Registered Nurse Emergency
DX: J06.9 Acute upper respiratory infection, unspecified (principal)
CPT/HCPCS: 87880; 99213

== ENCOUNTER 2023-07-26 16:27 | Outpatient (REF) | payer OTHER, SELFPAY | END 2023-07-26 16:28 | disposition home or self-care (01) | LOC: HO.LAB 16:27 | PROVIDERS: Visit Provider Registered Nurse Emergency | DX: Z13.89 Encounter for screening for other disorder (principal) ==

== ENCOUNTER 2023-11-20 16:50 | Emergency (ER) | payer OTHER, SELFPAY ==
--- NOTE | 2023-11-20 | ECG_ITS ---
Test Reason : chest pain Blood Pressure : / mmHG Vent. Rate : 090 BPM Atrial Rate : 090 BPM P-R Int : 158 ms QRS Dur : 086 ms QT Int : 372 ms P-R-T Axes : 035 -28 038 degrees QTc Int : 455 ms Normal sinus rhythm Minimal voltage criteria for LVH, may be normal variant ( R in aVL ) Borderline ECG When compared with ECG of 01-JUN-2021 01:20, No significant change was found Referred By: Generic ED Physician Electronically Signed By:VIVEK CHOU MD
--- NOTE | ~2023-11-20 | XR_ITS ---
EXAMINATION: XR CHEST CLINICAL INFORMATION: Chest pain COMPARISON: 04/03/2022 TECHNIQUE: 2 views of the chest were obtained. FINDINGS: No significant abnormality is noted involving the heart, lungs, mediastinum, bony thorax or soft tissues. XR/XR chest 2V IMPRESSION: Unremarkable examination.
[2023-11-20 17:00] VITALS: BP 108/55; PULSE 86; RESP 18; TEMP 36.6; O2SAT 97; BMI 52.1
--- NOTE | 2023-11-20 17:01 | ED.GENADULT ---
HPI - General Adult General Chief complaint: Chest Pain Stated complaint: chest pain Time Seen by Provider: 11/20/23 17:29 Source: patient, EMS, RN notes reviewed and old records reviewed Mode of arrival: ambulatory Limitations: no limitations History of Present Illness ED Provider: Ron Weaver PA-C HPI narrative: 38 year old female with PMHx of hypertension and depression presents to the ED complaining of substernal chest pain that woke her from her sleep around 12-noon. Describes pain as stabbing, nonradiating. Denies similar symptoms in the past. denies trauma or injury to her chest. Denies shortness of breath, difficulty breathing, back or abdominal pain, fevers, headache, nausea, vomiting, diarrhea. Patient states she uses marijuana daily, smokes cigarettes occasionally. Last cigarette was 4 days ago. Onset (ago): hour(s) (4) Location: chest Radiation: non-radiation Severity: moderate Quality: stabbing Related Data Home Medications ?Medication ?Instructions ?Recorded ?Confirmed omeprazole 40 mg capsule,delayed 40 mg PO DAILY 07/26/23 release Previous Rx's ?Medication ?Instructions ?Recorded albuterol sulfate 90 mcg/actuation 2 inh inhalation Q6H PRN shortness 07/26/23 breath activated powder inhaler of breath or wheezing #1 ea benzonatate 100 mg capsule 100 mg PO BID PRN cough #20 caps 07/26/23 prednisone 20 mg tablet 40 mg (2 x 20 mg) PO DAILY 5 days 07/26/23 #10 tabs Allergies Allergy/AdvReac Type Severity Reaction Status Date / Time amoxicillin [Amoxicillin] Allergy Mild RASH Verified 11/20/23 17:02 Review of Systems Review of Systems: Constitutional: No Fever, No Chills ENT/Mouth: No Ear Pain, No Nasal Congestion, No sore throat, No Rhinorrhea, No Swallowing Difficulty Cardiovascular: + Chest Pain, No SOB Respiratory: No Cough, No Wheezing Gastrointestinal: No Nausea, No Vomiting, No Abdominal pain Musculoskeletal: No joint pain, No Myalgias, No Joint Swelling Skin: No Skin Lesions, No rash Neuro: No Weakness, No Numbness, No Paresthesias Yes all other systems are reviewed and are negative Constitutional: Constitutional: Reports as per HPI Cardiovascular: Cardiovascular: Reports chest pain and Reports chest pain at rest PMFSH Past Medical History Attestation statement: The following information was validated with the patient. Source: old records reviewed Surgical History Hx of cholecystectomy Previous section Social History Social History Patient Tobacco Use Status: Never used Tobacco Smoked in Last 30 Days: No Use of substances other than those prescribed or required for medical reasons: Yes Substance Use Type: Marijuana Substance Use Frequency: Chronic Longstanding Advance Directives: No Advance Directives Information Provided: No Do you have a plan to hurt others: No Plan Physical Exam ED Vital Signs: Vital Signs - 24 hr 11/20/23 17:00 11/20/23 18:00 Temperature 97.9 F 98.9 F Pulse Rate 86 60 Respiratory Rate 18 20 Blood Pressure 108/55 L 116/61 Pulse Oximetry 97 97 Oxygen Delivery Method Room Air Room Air Transtracheal Catheter BMI result Body Mass Index 52.1 There is reproducible pain with palpation to the sternal chest. Upper abdomen that radiates to the sternum.Pain with deep breaths and full exhalation. Const General: cooperative, healthy appearing and no acute distress Orientation/consciousness: patient oriented x3 Limitations: no limitations HENMT Head: Yes normal to inspection and Yes atraumatic Ears: hearing grossly normal bilaterally General nose exam: Normal external nose present Face and sinus: Yes normal facial exam Eyes General: appearance normal, both eyes and all related structures EOM: EOMs intact bilaterally Neck Neck: Yes normal visual inspection and Yes no meningeal signs Chest Chest palpation & inspection: normal inspection of the chest, no crepitus and tenderness sternum Resp Effort & Inspection: normal respiratory effort and no respiratory distress Auscultation: clear to auscultation bilaterally, no crackles and no wheezes Cardio Palpation: other Rate: regular rate Heart sounds: S1 normal heart sound present and S2 normal heart sound present GI Inspection: Yes normal to inspection Palpation (GI): Soft to palpation, Tenderness to palpation present (GI) in the epigastrum; with no rebound tenderness, no guarding and not rigid General: Yes no CVA tenderness Back/Spine/Pelvis Back: no CVA tenderness Skin Rashes: no rashes Wounds: no wounds Neuro General: patient oriented x3, tone normal and no meningeal signs Cranial nerves: Yes CN's II-XII intact bilaterally Gait exam (Neuro): Normal gait present Extrem General: Yes normal to inspection Course Course Course Narrative: This is a rapid medical exam performed by Faviola Mims NP: Additional HPI, ROS, PE not included below will be deferred to primary provider. Patient is a 38-year-old female with history of HTN, depression presenting to the ED with complaint of stabbing chest pain. States she was taking a nap and the pain woke her from sleep. Denies dyspnea, nausea or vomiting. Plan: EKG, labs, CXR - WBC 15.3. initial troponin negative > will obtain 3hr repeat XR chest 2V IMPRESSION: Unremarkable examination. - 2034--patient noted to have left without repeat troponin being drawn. LWCT Medications Administered Discontinued Medications Generic Name Dose Route Start Last Admin Trade Name Freq PRN Reason Stop Dose Admin Al Hydroxide/Mg Hydroxide 30 ml 11/20/23 18:35 11/20/23 19:00 Magnesium Hydrox/Alum Hydrox 30 Ml Oral.Susp PO 11/20/23 18:36 30 ml ONCE ONE Administration Famotidine 20 mg 11/20/23 18:35 11/20/23 18:59 Famotidine 20 Mg Tablet PO 11/20/23 18:36 20 mg ONCE ONE Administration Ketorolac Tromethamine 30 mg 11/20/23 17:48 11/20/23 17:58 Ketorolac Tromethamine 30 Mg/Ml Vial IM 11/20/23 17:49 30 mg ONCE ONE Administration Medical Decision Making Medical Decision Making MDM Narrative: 38 year old female with PMHx of hypertension and depression presents to the ED complaining of substernal chest pain that woke her from her sleep around 12-noon. On exam vital signs stable, NAD, nontoxic appearing, chest pain reproducible with palpation of chest wall. No evidence of trauma or rash. No flail chest. Abdomen soft with mild epigastric tenderness, no rebound or guarding. Concern for ACS vs pneumonia or PTX vs gastritis/GERD or pancreatitis. Lower suspicion for dissection, PE, CHF. Lower suspicion for pericarditis/myocarditis plan: EKG, labs, CXR, viral testing Please refer to course for remaining clinical decision making, interpretation of labs/imaging results, and discussions with consultants and/or family members. Differential Diagnosis Differential Diagnoses: The differential diagnosis associated with the presentation includes IN, pneumothorax, PE, pericarditis, costochondritis, viral illness, pneumonia Admission/Observation Consideration of admission/observation: Escalation of care including admission/observation considered Lab Data MDM Lab Attestation statement: I reviewed the patient's lab results. 11/20/23 17:22 11/20/23 17:22 Labs: Lab Results 11/20/23 11/20/23 Range/Units 17:22 18:23 WBC 15.3 H (4.8-10.8) X10*3/uL RBC 4.82 (4.20-5.50) X10*6/uL Hgb 13.3 (12.0-16.0) g/dl Hct 40.6 (37.0-47.0) % MCV 84.2 (80.0-98.0) fL MCH 27.6 (27.0-33.0) pg MCHC 32.8 (31.0-35.0) g/dl RDW 13.8 (11.0-16.0) % Plt Count 323 (160-400) X10*3/uL MPV 9.2 L (9.4-12.3) fL Immature Gran % (Auto) 0.4 (0.0-0.4) % Neut % (Auto) 69.3 (45-73) % Lymph % (Auto) 21.1 (20-40) % [place] % (Auto) 6.2 (2-11) % Eos % (Auto) 2.6 (0-4) % Baso % (Auto) 0.4 (0-2) % Lymph # (Auto) 3.2 (1.2-4.9) X10*3/uL [place] # (Auto) 1.0 (0.1-1.2) X10*3/uL Eos # (Auto) 0.4 (0.0-0.4) X10*3/uL Baso # (Auto) 0.1 (0.0-0.2) X10*3/uL Abs Immat Gran (auto) 0.06 H (0.00-0.03) X10*3/uL Absolute Neuts (auto) 10.6 H (2.0-8.3) x10*3/uL Absolute Nucleated RBC 0.000 (0.0-0.012) X10*3/uL Nucleated RBC % (auto) 0.0 (0.0-0.2) /100WBC PT 11.8 (11.1-13.3) SEC INR 1.0 (0.9-1.1) Sodium 141 (135-145) mmol/L Potassium 4.0 (3.3-5.1) mmol/L Chloride 110 H (96-108) mmol/L Carbon Dioxide 22 (22-29) mmol/L Anion Gap 13 (12-20) BUN 12 (9-16) mg/dL Creatinine 0.63 (0.5-1.4) mg/dL Estim Creat Clear Calc 162.1 Estimated GFR > 60 Random Glucose 112 (60-115) mg/dL Calcium 8.8 (8.4-10.2) mg/dL Total Bilirubin 0.4 (0.0-1.0) mg/dL AST 11 (5-31) U/L ALT 15 (0-31) U/L Alkaline Phosphatase 94 (39-117) U/L Troponin I High Sens < 2.7 (<3.5-17.0) ng/L Total Protein 6.7 (6.5-8.0) g/dL Albumin 3.6 (3.5-5.0) g/dL Lipase 41 (8-78) U/L Influenza Type A (PCR) NEGATIVE (Negative) Influenza Type B (PCR) NEGATIVE (Negative) RSV RNA Qual (PCR) NEGATIVE (Negative) SARS-CoV-2 RNA (RT-PCR) NEGATIVE (Negative) Independent Interpretation I performed an independent interpretation of an: EKG and Plain X-Ray Radiology Impression Discussion of test interpretation with radiology: I have reviewed the radiologist's reading. External Record Review External record reviewed: Inpatient record, Office record, Outpatient record, Prior outpatient labs, Prior outpatient radiology, Primary care record and Outside ED record Tests considered The following testing was considered but not selected: As above Prescription Management I considered prescription management with: Pain Medication Discharge Plan Discharge Clinical Impression: Chest pain Patient Disposition: Left W/O Completing Treatment Prescriptions: No Action omeprazole 40 mg capsule,delayed release(DR/EC) 40 mg PO DAILY prednisone 20 mg tablet 40 mg PO DAILY 5 Days Qty: 10 0RF benzonatate 100 mg capsule 100 mg PO BID PRN (Reason: cough) Qty: 20 0RF albuterol sulfate 90 mcg/actuation aerosol powdr breath activated 2 inh inhalation Q6H PRN (Reason: shortness of breath or wheezing) Qty: 1 0RF Discharge Date/Time: 11/20/23 20:51
[2023-11-20 17:28] LABS: MANUAL DIFF FLAG NO
[2023-11-20 17:29] LABS: Basophils Absolute Auto 0.1 X10*3/uL (0.0-0.2); Basophils Percent Auto 0.4 % (0-2); Eosinophils Absolute Auto 0.4 X10*3/uL (0.0-0.4); Eosinophils Percent Auto 2.6 % (0-4); Hematocrit 40.6 % (37.0-47.0); Hemoglobin 13.3 g/dl (12.0-16.0); Imm Gran Abs Auto 0.06 X10*3/uL (0.00-0.03); Imm Gran Pct Auto 0.4 % (0.0-0.4); Lymphocytes Absolute Auto 3.2 X10*3/uL (1.2-4.9); Lymphocytes Percent Auto 21.1 % (20-40); Mean Corpuscular HGB Conc 32.8 g/dl (31.0-35.0); Mean Corpuscular Hemoglobin 27.6 pg (27.0-33.0); Mean Corpuscular Volume 84.2 fL (80.0-98.0); Mean Platelet Volume 9.2 fL (9.4-12.3); Monocytes Percent Auto 6.2 % (2-11); Neutrophils Absolute Auto 10.6 x10*3/uL (2.0-8.3); Neutrophils Percent Auto 69.3 % (45-73); Platelet Count 323 X10*3/uL (160-400); Red Blood Count 4.82 X10*6/uL (4.20-5.50); Red Cell Distribution Width 13.8 % (11.0-16.0); White Blood Count 15.3 X10*3/uL (4.8-10.8)
[2023-11-20 17:39] LABS: Prothrombin Time 11.8 SEC (11.1-13.3)
[2023-11-20 17:50] LABS: Alanine Aminotransferase 15 U/L (0-31); Albumin Level 3.6 g/dL (3.5-5.0); Alkaline Phosphatase 94 U/L (39-117); Anion Gap 13 (12-20); Aspartate Amino Transferase 11 U/L (5-31); Bilirubin Total 0.4 mg/dL (0.0-1.0); Blood Urea Nitrogen 12 mg/dL (9-16); Calcium 8.8 mg/dL (8.4-10.2); Carbon Dioxide 22 mmol/L (22-29); Chloride 110 mmol/L (96-108); Creatinine Clr Calc Pharmacy 162.1; Estimated Glomerular Filt Rate > 60; Glucose Random 112 mg/dL (60-115); Sodium 141 mmol/L (135-145); Total Protein 6.7 g/dL (6.5-8.0)
[2023-11-20 17:58] LABS: Troponin-I High Sensitivity < 2.7 ng/L (<3.5-17.0)
[2023-11-20] MEDS: Ketorolac Tromethamine 30 MG/ML VIAL IM (17:58)
[2023-11-20 18:00] VITALS: BP 116/61; PULSE 60; RESP 20; TEMP 37.2; O2SAT 97
[2023-11-20 18:09] LABS: Lipase 41 U/L (8-78)
[2023-11-20] MEDS: Famotidine 20 MG TABLET PO (18:59)
[2023-11-20] MEDS: Magnesium Hydrox/Alum Hydrox 30 ML ORAL.SUSP PO (19:00)
[2023-11-20 19:23] LABS: Influenza A PCR NEGATIVE (Negative); Influenza B PCR NEGATIVE (Negative); Resp Syncy Virus RNA Qual PCR NEGATIVE (Negative); SARS COV2 PCR INHOUSE NEGATIVE (Negative)
--- NOTE | 2023-11-20 19:34 | PC.NURSE ---
Went in to room to update pt on plan of care, pt sitting on stretcher with cardiac leads taken off. 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 Denies any other needs.
--- NOTE | 2023-11-20 20:30 | MHC.EDTECH ---
Upon arrival This Tech notice Patient was not in the room. Due to the patient not being in the room the 2020pm Troponin was delayed PA AND RN was Notified Plan of care ongoing
--- NOTE | 2023-11-20 20:35 | PC.NURSE ---
Pt no longer visualized in room or department. Cardiac leads once again found on stretcher. vp construction notified.
== END 2023-11-20 20:51 | disposition left against medical advice (07) ==
PROVIDERS: Physician Assistant; Registered Nurse Emergency; Emergency Provider Emergency Medicine Emergency Medical Services
DX: R07.9 Chest pain, unspecified (principal); Z03.818 Encounter for observation for suspected exposure to other biological agents ruled out; I10 Essential (primary) hypertension; F17.210 Nicotine dependence, cigarettes, uncomplicated; F12.90 Cannabis use, unspecified, uncomplicated
CPT/HCPCS: 0241U; 36415; 71046; 80053; 83690; 84484; 85025; 85610; 93005; 96372; 99284; 99285; J1885

== ENCOUNTER → 2023-11-20 16:52 | Outpatient (BNV) | payer OTHER, SELFPAY | PROVIDERS: Emergency Provider Emergency Medicine Emergency Medical Services; Visit Provider Internal Medicine Cardiovascular Disease | DX: R07.9 Chest pain, unspecified (principal); R94.31 Abnormal electrocardiogram [ECG] [EKG] | CPT/HCPCS: 93010 ==

== ENCOUNTER 2024-03-14 07:42 | Emergency (ER) | payer OTHER, SELFPAY ==
--- NOTE | ~2024-03-14 | XR_ITS ---
EXAMINATION: XR CHEST CLINICAL INFORMATION: sob, cough COMPARISON: 11/20/2023. 04/03/2022. TECHNIQUE: 2 views of the chest were obtained. FINDINGS: The cardiac, hilar, and mediastinal contours are normal. The lungs are clear bilaterally. There is no pneumothorax or pleural effusion. There is no focal osseous or soft tissue abnormality. XR/XR chest 2V IMPRESSION: No active disease. No change. Electronically signed by: Reilly Reeves MD 03/14/2024 12:00 PM AKASH
[2024-03-14 08:13] VITALS: BP 149/76; PULSE 81; RESP 22; TEMP 37.1; O2SAT 94; BMI 52.7
[2024-03-14 08:33] VITALS: PULSE 72; RESP 18; O2SAT 98
[2024-03-14] MEDS: Albuterol Sulfate 2.5 MG, Albuterol/Iprat 2.5/0.5MG 3 ML 3 ML INHALE (08:35)
--- NOTE | 2024-03-14 08:47 | PC.NURSE ---
a&ox4. vss and up to date. pt presents to the ED c/o cough/sob x 2 days. denies any n/v/fever/chills/chest pain. denies hx of asthma/copd. daily smoker. swabs obtained/sent to lab. wheezing noted throughout. pt receiving breathing treatment via RT. pt waiting for chest xray to be completed. plan of care ongoing.
--- NOTE | 2024-03-14 09:09 | ED.GENADULT ---
HPI - General Adult General Chief complaint: Upper Respiratory Symptoms Stated complaint: Asthma Time Seen by Provider: 03/14/24 09:04 Source: patient Mode of arrival: ambulatory Limitations: no limitations History of Present Illness ED Provider: Prasanna CANDELARIO narrative: Patient is a 38-year-old female with history of hypertension presenting to the emergency department with complaint of cough and shortness of breath for the past 2 days. Denies history of asthma. Denies fevers. Reports cough is nonproductive. Denies any ear pain, sore throat or other symptoms. Denies chest pain or palpitations. Denies any known sick contacts. MD complaint: Cough and shortness of breath Onset (ago): day(s) Treatments prior to arrival: none Related Data Home Medications ?Medication ?Instructions ?Recorded ?Confirmed omeprazole 40 mg capsule,delayed 40 mg PO DAILY 07/26/23 release Previous Rx's ?Medication ?Instructions ?Recorded albuterol sulfate 90 mcg/actuation 2 inh inhalation Q6H PRN shortness 07/26/23 breath activated powder inhaler of breath or wheezing #1 ea benzonatate 100 mg capsule 100 mg PO BID PRN cough #20 caps 07/26/23 prednisone 20 mg tablet 40 mg (2 x 20 mg) PO DAILY 5 days 07/26/23 #10 tabs albuterol sulfate 90 mcg/actuation 2 puff inhalation Q4-6H PRN 03/14/24 aerosol inhaler shortness of breath or wheezing #6.7 grams azithromycin 250 mg tablet See Rx Instructions PO .COMPLEX #6 03/14/24 tabs benzonatate 100 mg capsule 100 mg PO TID PRN cough #14 caps 03/14/24 prednisone 20 mg tablet 40 mg (2 x 20 mg) PO DAILY #10 tabs 03/14/24 Allergies Allergy/AdvReac Type Severity Reaction Status Date / Time amoxicillin [Amoxicillin] Allergy Mild RASH Verified 03/14/24 08:15 Review of Systems Review of Systems: As per HPI. Yes all other systems are reviewed and are negative Constitutional: Constitutional: Reports as per HPI [facility] Past Medical History Surgical History Hx of cholecystectomy Previous section Social History Social History Patient Tobacco Use Status: Never used Tobacco Substance Use Type: Marijuana Advance Directives: No Do you have a plan to hurt others: No Plan Physical Exam ED Vital Signs: Vital Signs - 24 hr 03/14/24 08:13 03/14/24 08:33 03/14/24 10:47 Temperature 98.7 F 98.0 F Pulse Rate 81 72 94 Respiratory Rate 22 H 18 18 Blood Pressure 149/76 H 123/78 Pulse Oximetry 94 96 Oxygen Delivery Method Room Air Room Air BMI result Body Mass Index 52.7 Vital signs have been reviewed and appear to be correct. Blood pressure elevated. Heart rate normal. Respiratory rate normal. Temperature normal. Oxygen saturation normal. Const General: cooperative, healthy appearing and no acute distress Orientation/consciousness: oriented to person, oriented to place, oriented to time and patient oriented x3 Limitations: no limitations HENMT Head: Yes normocephalic and Yes atraumatic Ears: external ears normal General nose exam: Normal external nose present Face and sinus: Yes face symmetric Mouth: oropharynx normal and moist mucous membranes Throat: Yes uvula midline Eyes Pupils: Equal, round and reactive pupils present Neck Neck: Yes normal visual inspection and Yes supple Resp Effort & Inspection: normal respiratory effort and able to speak in complete sentences Auscultation: clear to auscultation bilaterally and wheezes inspiratory wheezes (mild, scattered) Cardio Rate: regular rate Rhythm: regular rhythm Heart sounds: S1 normal heart sound present and S2 normal heart sound present GI Palpation (GI): Soft to palpation and nontender Auscultation: normoactive bowel sounds General: Yes no CVA tenderness Back/Spine/Pelvis Back: no CVA tenderness Skin General skin exam: elasticity normal and turgor normal Neuro General: oriented to person, oriented to place, oriented to time, patient oriented x3, moves all extremities, no focal motor deficits and CN's II-XI intact bilaterally Cranial nerves: Yes Equal, round and reactive pupils present Cognition (Neuro): normal cognition Extrem General: Yes full ROM, Yes no pedal edema and Yes no calf tenderness Psych Mental Status: mental status grossly normal Affect: normal affect Thought process: Normal thought process present Medications Administered Discontinued Medications Generic Name Dose Route Start Last Admin Trade Name Freq PRN Reason Stop Dose Admin Albuterol Sulfate 2.5 mg/ 0 mg 03/14/24 08:32 03/14/24 08:35 Albuterol/Ipratropium 3 ml INHALE 03/14/24 08:33 1 dose ONCE ONE Administration Medical Decision Making Medical Decision Making [facility] Narrative: Patient is a 38-year-old female with history of hypertension presenting to the emergency department with complaint of cough and shortness of breath for the past 2 days. On exam patient is awake, A+Ox3, VS WNL, afebrile, normal neurological exam without focal deficits, physical exam findings as above. Given reported symptoms and physical exam findings, initial differential includes viral illness, covid, flu, rsv, bronchitis, pneumonia. Viral serology negative. X-ray chest notable for no evidence of pneumonia. My interpretation is in agreement with the radiologist's interpretation. Symptoms improved with breathing treatment given in the ED. Will discharge patient home on azithromycin, prednisone, benzonatate and albuterol inhaler. Follow up with PCP. Return precautions discussed. Patient verbalized understanding of and agreement with plan. Differential Diagnosis Differential Diagnoses: The differential diagnosis associated with the presentation includes As per [facility]. Lab Data [facility] Lab Attestation statement: I reviewed the patient's lab results. As per [facility] Labs: Lab Results 03/14/24 Range/Units 08:26 Influenza Type A (PCR) NEGATIVE (Negative) Influenza Type B (PCR) NEGATIVE (Negative) RSV RNA Qual (PCR) NEGATIVE (Negative) SARS-CoV-2 RNA (RT-PCR) NEGATIVE (Negative) Independent Interpretation I performed an independent interpretation of an: Plain X-Ray Interpretation: No evidence of pneumonia on chest x-ray Radiology Impression Discussion of test interpretation with radiology: I have reviewed the radiologist's reading. Radiologist Impression: XR/XR chest 2V IMPRESSION: No active disease. No change. External Record Review External record reviewed: Inpatient record, Office record and Outpatient record Prescription Management I considered prescription management with: Antibiotic and Other Discharge Plan Discharge Clinical Impression: URI (upper respiratory infection), Wheezing Patient Disposition: Home, Self-Care Instructions: How to Use a Metered-Dose Inhaler (ED), Upper Respiratory Infection (DC), Viral Syndrome (ED), Wheezing (ED) Additional Instructions: You were evaluated in the emergency department today for cough and shortness of breath. You are being treated with an antibiotic, please complete the full course as prescribed. You are also being prescribed a short course of steroids to decrease inflammation. You are being prescribed an inhaler which you can use every 4-6 hours as needed for shortness of breath. You are also being prescribed cough medicine, KEEP THIS OUT OF REACH OF CHILDREN. Please follow-up with your primary care provider this week. Return to the emergency department if you develop worsening shortness of breath, difficulty breathing, chest pain, fever not improved with Tylenol or ibuprofen, or any other concerning symptoms. Prescriptions: New prednisone 20 mg tablet 40 mg PO DAILY Qty: 10 0RF albuterol sulfate 90 mcg/actuation HFA aerosol inhaler 2 puff inhalation Q4-6H PRN (Reason: shortness of breath or wheezing) Qty: 6.7 0RF azithromycin 250 mg tablet See Rx Instructions .ROUTE .COMPLEX Qty: 6 0RF Rx Instructions: For 250 mg dose pack: take 500 mg today (day 1), then 250 mg for 4 days (days 2-5) benzonatate 100 mg capsule 100 mg PO TID PRN (Reason: cough) Qty: 14 0RF No Action omeprazole 40 mg capsule,delayed release(DR/EC) 40 mg PO DAILY prednisone 20 mg tablet 40 mg PO DAILY 5 Days Qty: 10 0RF benzonatate 100 mg capsule 100 mg PO BID PRN (Reason: cough) Qty: 20 0RF albuterol sulfate 90 mcg/actuation aerosol powdr breath activated 2 inh inhalation Q6H PRN (Reason: shortness of breath or wheezing) Qty: 1 0RF Stand Alone Forms: Work/School Release Print Language: [place] African
[2024-03-14 09:47] LABS: Influenza A PCR NEGATIVE (Negative); Influenza B PCR NEGATIVE (Negative); Resp Syncy Virus RNA Qual PCR NEGATIVE (Negative); SARS COV2 PCR INHOUSE NEGATIVE (Negative)
[2024-03-14 10:47] VITALS: BP 123/78; PULSE 94; RESP 18; TEMP 36.7; O2SAT 96
[2024-03-14 12:15] VITALS: BP 123/78; PULSE 94; RESP 18; TEMP 36.7; O2SAT 96
== END 2024-03-14 12:26 | disposition home or self-care (01) ==
PROVIDERS: Emergency Provider Emergency Medicine
DX: J06.9 Acute upper respiratory infection, unspecified (principal); J45.909 Unspecified asthma, uncomplicated; I10 Essential (primary) hypertension; R06.02 Shortness of breath; Z03.818 Encounter for observation for suspected exposure to other biological agents ruled out
CPT/HCPCS: 0241U; 71046; 94640; 99283; 99284

== ENCOUNTER → 2024-03-14 08:48 | Outpatient (BNV) | payer OTHER, SELFPAY | PROVIDERS: Emergency Provider Emergency Medicine; Visit Provider Radiology Diagnostic Radiology | DX: R06.02 Shortness of breath (principal); R05.9 Cough, unspecified | CPT/HCPCS: 71046 ==

== ENCOUNTER 2024-06-30 17:18 | Emergency (ER) | payer OTHER, SELFPAY | END 2024-06-30 19:29 | disposition left against medical advice (07) | PROVIDERS: Emergency Provider Emergency Medicine | DX: J02.9 Acute pharyngitis, unspecified (principal); Z53.21 Procedure and treatment not carried out due to patient leaving prior to being seen by health care provider ==

== ENCOUNTER 2024-07-01 12:42 | Emergency (ER) | payer OTHER, SELFPAY ==
[2024-07-01 12:49] VITALS: BP 140/93; PULSE 87; RESP 20; TEMP 36.8; O2SAT 96; BMI 53.4
--- NOTE | 2024-07-01 12:53 | ED_ITS ---
HPI - URI/Sore Throat General Chief Complaint: Upper Respiratory Symptoms Stated Complaint: throat and ear pain Time Seen by Provider: 07/01/24 13:54 Source: patient, RN notes reviewed and old records reviewed Mode of arrival: ambulatory Limitations: no limitations History of Present Illness ED Provider: Prasanna CANDELARIO Narrative: Patient is a 39-year-old female presenting with complaint of sore throat and left ear pain since Wednesday. Last night developed diarrhea, nausea, and vomiting. Reports subjective fevers/chills. No known sick contacts. Denies abdominal pain. Denies cough or shortness of breath. MD elicited complaint: sore throat Onset (ago): day(s) Consistency: constant Associated symptoms: fever, chills, vomiting, diarrhea and ear pain Related Data Home Medications ?Medication ?Instructions ?Recorded ?Confirmed omeprazole 40 mg capsule,delayed 40 mg PO DAILY 07/26/23 release Previous Rx's ?Medication ?Instructions ?Recorded albuterol sulfate 90 mcg/actuation 2 inh inhalation Q6H PRN shortness 07/26/23 breath activated powder inhaler of breath or wheezing #1 ea benzonatate 100 mg capsule 100 mg PO BID PRN cough #20 caps 07/26/23 prednisone 20 mg tablet 40 mg (2 x 20 mg) PO DAILY 5 days 07/26/23 #10 tabs albuterol sulfate 90 mcg/actuation 2 puff inhalation Q4-6H PRN 03/14/24 aerosol inhaler shortness of breath or wheezing #6.7 grams azithromycin 250 mg tablet See Rx Instructions PO .COMPLEX #6 03/14/24 tabs benzonatate 100 mg capsule 100 mg PO TID PRN cough #14 caps 03/14/24 prednisone 20 mg tablet 40 mg (2 x 20 mg) PO DAILY #10 tabs 03/14/24 azithromycin 500 mg tablet 500 mg PO DAILY 4 days #4 tabs 07/01/24 Allergies Allergy/AdvReac Type Severity Reaction Status Date / Time amoxicillin [Amoxicillin] Allergy Mild RASH Verified 07/01/24 12:54 Review of Systems Review of Systems: As per HPI Yes all other systems are reviewed and are negative Constitutional: Constitutional: Reports as per HPI [facility] Past Medical History Surgical History Hx of cholecystectomy Previous section Social History Social History Patient Tobacco Use Status: Never used Tobacco Substance Use Type: Marijuana Advance Directives: No Advance Directives Information Provided: No Physical Exam Vital Signs: Vital Signs: Last Vital Signs Temp 98.3 F 07/01/24 12:49 Pulse 87 07/01/24 12:49 Resp 20 07/01/24 12:49 BP 140/93 H 07/01/24 12:49 Pulse Ox 96 07/01/24 12:49 O2 Del Method Room Air 07/01/24 12:49 BMI result Body Mass Index 53.4 Vital signs have been reviewed and appear to be correct. Blood pressure normal. Heart rate normal. Respiratory rate normal. Temperature normal. Oxygen saturation normal. Const: General: cooperative, healthy appearing and no acute distress Orientation/consciousness: oriented to person, oriented to place, oriented to time and patient oriented x3 Limitations: no limitations HEENT: Head: Yes normocephalic and Yes atraumatic Ears: external ears normal, TM's normal bilaterally, EAC's normal, mastoids normal bilaterally and no periauricular adenopathy General nose exam: Normal external nose present and Normal nasal mucous membranes and turbinates present Face and sinus: Yes face symmetric Mouth: Normal oral and palatal mucosa present, lip normal, tongue normal, oropharynx normal, moist mucous membranes, no drooling, no muffled voice and no trismus Throat: Yes uvula midline, Yes abnormal tonsil (erythema, 3+ bilat, exudate on left), No peritonsillar mass and No uvular edema Eyes: Pupils: Equal, round and reactive pupils present Neck: Neck: Yes normal visual inspection and Yes supple Lymphatic: no lymphadenopathy noted Resp: Effort & Inspection: normal respiratory effort and able to speak in complete sentences Auscultation: clear to auscultation bilaterally Cardio: Rate: regular rate Rhythm: regular rhythm Heart sounds: S1 normal heart sound present and S2 normal heart sound present GI: Palpation (GI): Soft to palpation and nontender Auscultation: normoactive bowel sounds : General: Yes no CVA tenderness Back/Spine/Pelvis: Back: no CVA tenderness Skin: General skin exam: elasticity normal and turgor normal Neuro: General: oriented to person, oriented to place, oriented to time, patient oriented x3, moves all extremities, no focal motor deficits and CN's II- XI intact bilaterally Cranial nerves: Yes Equal, round and reactive pupils present Cognition (Neuro): normal cognition Extrem: General: Yes full ROM, Yes no pedal edema and Yes no calf tenderness Psych: Mental Status: mental status grossly normal Affect: normal affect Thought process: Normal thought process present Course Course Course Narrative: This is an RME performed by Maida Acevedo [employer]: Additional HPI, ROS, PE not included below will be deferred to primary provider. Patient is a 39-year-old female who presents emergency department for evaluation of a sore throat since Wednesday primarily on the left side painful swallowing pain radiating to the left ear. Denies known sick contacts. On examination has bilateral tonsillar hypertrophy and erythema, and slight displacement of the uvula towards the right. plan: Viral serologies, group a strep Medications Administered Discontinued Medications Generic Name Dose Route Start Last Admin Trade Name Freq PRN Reason Stop Dose Admin Azithromycin 500 mg 07/01/24 14:15 07/01/24 14:23 Azithromycin 500 Mg Tablet PO 07/01/24 14:16 500 mg ONCE ONE Administration Dexamethasone 10 mg 07/01/24 14:15 07/01/24 14:23 Dexamethasone 2 Mg Tablet PO 07/01/24 14:16 10 mg ONCE ONE Administration Medical Decision Making Medical Decision Making [facility] Narrative: Patient is a 39-year-old female presenting with complaint of sore throat and left ear pain since Wednesday. On exam patient is awake, A+Ox3, VS WNL, afebrile, normal neurological exam without focal deficits, physical exam findings as above. Given reported symptoms and physical exam findings, initial differential includes but is not limited to strep pharyngitis, viral illness, covid, flu, otitis media, otitis externa. Do not suspect [employer]/RPA. Strep swab positive. No evidence of AOM or otitis externa on physical exam. Viral panel negative. Patient treated with 1st dose of azithromycin in the ED as well as dexamethasone. Will send prescription for additional azithromycin to pharmacy. Avoiding amoxicillin as patient has documented allergy with reaction of rash, is unsure extent of reaction. Return precautions discussed at bedside. Follow up with PCP as needed. Patient verbalized understanding of and agreement with plan. Differential Diagnosis Differential Diagnoses: The differential diagnosis associated with the presenta tion includes As per [facility] Lab Data [facility] Lab Attestation statement: I reviewed the patient's lab results. As per [facility] Labs: Lab Results 07/01/24 Range/Units 12:58 Influenza Type A (PCR) NEGATIVE (Negative) Influenza Type B (PCR) NEGATIVE (Negative) RSV RNA Qual (PCR) NEGATIVE (Negative) SARS-CoV-2 RNA (RT-PCR) NEGATIVE (Negative) S. pyogenes GrpA NGOZI Positive A (Negative) External Record Review External record reviewed: Inpatient record, Office record and Outpatient record Prescription Management I considered prescription management with: Antibiotic and Other Discharge Plan Discharge Clinical Impression: Acute streptococcal pharyngitis Patient Disposition: Home, Self-Care Instructions: Strep Throat (DC) Additional Instructions: You were evaluated in the emergency department today for a sore throat. Your strep swab was positive. You are being prescribed antibiotics, please complete the full course as prescribed even if your symptoms improve. You are contagious until you have taken the antibiotics for 24 hours. Be sure to drink adequate fluids. You can use Tylenol and ibuprofen per package directions as needed for discomfort. You can also gargle with warm salt water several times daily. Follow-up with your primary care provider this week. Return to the emergency department if you develop difficulty swallowing, worsening pain, shortness of breath, are unable to swallow your saliva, fever not improved with Tylenol/ibuprofen, or any other concerning symptoms. Prescriptions: New azithromycin 500 mg tablet 500 mg PO DAILY 4 Days Qty: 4 0RF No Action prednisone 20 mg tablet 40 mg PO DAILY Qty: 10 0RF albuterol sulfate 90 mcg/actuation HFA aerosol inhaler 2 puff inhalation Q4-6H PRN (Reason: shortness of breath or wheezing) Qty: 6.7 0RF azithromycin 250 mg tablet See Rx Instructions .ROUTE .COMPLEX Qty: 6 0RF Rx Instructions: For 250 mg dose pack: take 500 mg today (day 1), then 250 mg for 4 days (days 2-5) benzonatate 100 mg capsule 100 mg PO TID PRN (Reason: cough) Qty: 14 0RF omeprazole 40 mg capsule,delayed release(DR/EC) 40 mg PO DAILY prednisone 20 mg tablet 40 mg PO DAILY 5 Days Qty: 10 0RF benzonatate 100 mg capsule 100 mg PO BID PRN (Reason: cough) Qty: 20 0RF albuterol sulfate 90 mcg/actuation aerosol powdr breath activated 2 inh inhalation Q6H PRN (Reason: shortness of breath or wheezing) Qty: 1 0RF Stand Alone Forms: Work/School Release Print Language: Slovak
[2024-07-01 13:08] LABS: IDNOW Serial# 58CA691E; Strep A Nucleic Acid Positive (Negative)
[2024-07-01] MEDS: Azithromycin 500 MG TABLET PO (14:23)
[2024-07-01] MEDS: dexAMETHasone 2 MG TABLET 10 MG PO (14:23)
[2024-07-01 14:34] LABS: Influenza A PCR NEGATIVE (Negative); Influenza B PCR NEGATIVE (Negative); Resp Syncy Virus RNA Qual PCR NEGATIVE (Negative); SARS COV2 PCR INHOUSE NEGATIVE (Negative)
[2024-07-01 16:01] VITALS: BP 140/93; PULSE 87; RESP 20; TEMP 36.8; O2SAT 96
== END 2024-07-01 16:02 | disposition home or self-care (01) ==
PROVIDERS: Nurse Practitioner Family; Emergency Provider Emergency Medicine
DX: J10.1 Influenza due to other identified influenza virus with other respiratory manifestations (principal); H92.02 Otalgia, left ear; Z03.818 Encounter for observation for suspected exposure to other biological agents ruled out
CPT/HCPCS: 0241U; 87651; 99282; 99283; J8540

== ENCOUNTER 2025-01-18 20:23 | Emergency (ER) | payer OTHER, SELFPAY ==
--- NOTE | ~2025-01-18 | US_ITS ---
CLINICAL HISTORY: LLQ pain US pelvis transabdominal and transvaginal with Doppler Comparison: None provided Findings: Transabdominal scanning performed for overall anatomy. Transvaginal scanning performed for additional detail. Uterus measures 8.8 x 4.6 x 5.3 cm. There is no uterine mass. Endometrium is within normal limits measuring 9 mm in thickness. Right ovary measures 3.1 x 2 x 1.7 cm. There is no right adnexal mass or fluid collection. The right ovary was only able to be visualized from a transabdominal view. Color Doppler blood flow evaluation of the right ovary was limited due to body habitus from a transabdominal view. Left ovary measures 2.8 x 1.3 x 1.6 cm. There is no left adnexal mass or fluid collection. There is normal color Doppler and arterial/venous spectral tracings within the left ovary. There is minimal free fluid in the cul-de-sac. IMPRESSION: Unremarkable pelvic ultrasound. This document has been electronically signed by: Wade Morrow MD on 01/18/2025 23:57:01
[2025-01-18 20:26] VITALS: BP 137/75; PULSE 73; RESP 20; TEMP 36.4; O2SAT 98; BMI 52.1
[2025-01-18 20:48] LABS: MANUAL DIFF FLAG NO
[2025-01-18 20:49] LABS: Hematocrit 40.9 % (37.0-47.0); Hemoglobin 13.1 g/dl (12.0-16.0); Imm Gran Abs Auto 0.04 X10*3/uL (0.00-0.03); Imm Gran Pct Auto 0.3 % (0.0-0.4); Lymphocytes Absolute Auto 3.6 X10*3/uL (1.2-4.9); Mean Corpuscular HGB Conc 32.0 g/dl (31.0-35.0); Mean Corpuscular Hemoglobin 27.0 pg (27.0-33.0); Mean Corpuscular Volume 84.2 fL (80.0-98.0); NRBC Abs Auto 0.000 X10*3/uL (0.0-0.012); NRBC Pct Auto 0.0 /100WBC (0.0-0.2); Platelet Count 324 X10*3/uL (160-400); Red Blood Count 4.86 X10*6/uL (4.20-5.50); White Blood Count 12.7 X10*3/uL (4.8-10.8)
[2025-01-18 20:51] LABS: Appearance Urine Clear; Glucose Urine UA Negative (Negative); PH 6.0 (5.0-9.0); Specific Gravity - Urine 1.025 (1.005-1.025); UMIC TRIGGER UACC YES
[2025-01-18 20:52] LABS: UPreg QC Valid YES
[2025-01-18 21:02] LABS: Alanine Aminotransferase 20 U/L (0-31); Albumin Level 3.9 g/dL (3.5-5.0); Alkaline Phosphatase 95 U/L (39-117); Anion Gap 12 (12-20); Aspartate Amino Transferase 16 U/L (5-31); Blood Urea Nitrogen 10 mg/dL (9-16); Calcium 8.8 mg/dL (8.4-10.2); Carbon Dioxide 25 mmol/L (22-29); Chloride 110 mmol/L (96-108); Creatinine Clr Calc Pharmacy 163.1; Estimated Glomerular Filt Rate > 60; Lipase 34 U/L (8-78); Potassium 3.6 mmol/L (3.3-5.1); Sodium 143 mmol/L (135-145); Total Protein 6.8 g/dL (6.5-8.0)
[2025-01-18] MEDS: HYDROcodone Bit/Acetam 5/325 TABLET 1 TAB PO (22:23)
[2025-01-18 22:24] VITALS: BP 107/62; PULSE 65; RESP 16; O2SAT 97
--- NOTE | 2025-01-18 23:31 | ED.ABDPAIN ---
HPI - Abdominal Pain General Chief Complaint: Abdominal Pain Stated Complaint: pain in left ovary Time Seen by Provider: 01/18/25 22:02 Source: patient and old records reviewed Mode of arrival: ambulatory Limitations: no limitations History of Present Illness ED Provider: GERARDO CANDELARIO narrative: 39 yo female with PMH Of depression, HTN no prior abd surgeries who is due for her menses in the next couple of days presents with c/o LLQ pain that will not go away. She has no associated fevers, discharge, urinary symptoms, GI symptoms. She has not had diverticulitis or ovarian cyst before. She took motrin x 1 yesterday but no relief. MD elicited complaint: abdominal pain Onset (ago): day(s) (1) Pain Consistency: constant Location: LLQ Severity: moderate Quality: aching Radiation: none Migration to: no migration Exacerbating factors: movement Relieving factors: nothing Associated symptoms: denies other symptoms Treatments prior to arrival: NSAIDs Related Data Home Medications ?Medication ?Instructions ?Recorded ?Confirmed omeprazole 40 mg capsule,delayed 40 mg PO DAILY 07/26/23 release Previous Rx's ?Medication ?Instructions ?Recorded albuterol sulfate 90 mcg/actuation 2 inh inhalation Q6H PRN shortness 07/26/23 breath activated powder inhaler of breath or wheezing #1 ea benzonatate 100 mg capsule 100 mg PO BID PRN cough #20 caps 07/26/23 prednisone 20 mg tablet 40 mg (2 x 20 mg) PO DAILY 5 days 07/26/23 #10 tabs albuterol sulfate 90 mcg/actuation 2 puff inhalation Q4-6H PRN 03/14/24 aerosol inhaler shortness of breath or wheezing #6.7 grams azithromycin 250 mg tablet See Rx Instructions PO .COMPLEX #6 03/14/24 tabs benzonatate 100 mg capsule 100 mg PO TID PRN cough #14 caps 03/14/24 prednisone 20 mg tablet 40 mg (2 x 20 mg) PO DAILY #10 tabs 03/14/24 azithromycin 500 mg tablet 500 mg PO DAILY 4 days #4 tabs 07/01/24 hydrocodone 5 mg-acetaminophen 325 1 tab PO Q6H PRN pain #8 tabs 01/19/25 mg tablet levofloxacin 500 mg tablet 500 mg PO DAILY #10 tabs 01/19/25 metronidazole 500 mg tablet 500 mg PO BID 7 days #14 tabs 01/19/25 ondansetron 4 mg disintegrating 4 mg PO Q8H PRN nausea and 01/19/25 tablet vomiting #20 tabs Allergies Allergy/AdvReac Type Severity Reaction Status Date / Time amoxicillin (Amoxicillin) Allergy Mild RASH Verified 01/18/25 20:29 Review of Systems Review of Systems Constitutional : No Weight loss, No Fever, No Chills ENT/Mouth : No sore throat, No Rhinorrhea Eyes: No Swelling, No Redness Cardiovascular : No Chest Pain, No SOB, No Edema Respiratory : No Cough, No Sputum, No Wheezing Gastrointestinal : no Nausea, no Vomiting, no Diarrhea, positive abdominal Pain, No Hematochezia, No Melena Genitourinary : No Dysuria, No Urinary Frequency, No Hematuria, No Urgency Musculoskeletal : No joint pain, No Myalgias, No Joint Swelling Skin : No Skin Lesions, No rash All other systems reviewed and are negative. [facility] Past Medical History Attestation statement: The following information was validated with the patient. Source: old records reviewed Medical History Hypertension Depression Surgical History Hx of cholecystectomy Previous section Social History Social History Alcohol intake: unknown Patient Tobacco Use Status: Never used Tobacco Smoked in Last 30 Days: No Substance Use Type: Marijuana Advance Directives: No Advance Directives Information Provided: No Do you have a plan to hurt others: No Plan Patient : No Physical Exam ED Vital Signs: Vital Signs - 24 hr 01/18/25 20:26 01/18/25 22:24 Temperature 97.5 F Pulse Rate 73 65 Respiratory Rate 20 16 Blood Pressure 137/75 107/62 Pulse Oximetry 98 97 Oxygen Delivery Method Room Air Room Air BMI result Body Mass Index 52.1 Appearance: Alert. Oriented X3. No acute distress. Eyes: Pupils equal, round and reactive to light. ENT: Pharynx normal. Neck: Normal inspection. Neck supple. CVS: Normal heart rate and rhythm. Pulses normal. Respiratory: No respiratory distress. Breath sounds normal. Abdomen: Soft and ttp in LLQ no rebound or guarding, no mass felt Skin: Skin warm and dry. Normal skin color. Extremities: No lower extremity edema. Neuro: Oriented X 3. No motor deficit. No sensory deficit. Medical Decision Making Medical Decision Making [facility] Narrative: 39 yo female with PMH Of depression, HTN no prior abd surgeries here with c/o LLQ pain at this time the patient has only LLQ pain but no other symptoms. I do not see hernia. She will need labs, UA, preg and US to evaluate for ovarian cyst. Differential Diagnosis Differential Diagnoses: The differential diagnosis associated with the presentation includes renal colic, strain, ovarian cyst, diverticulitis Admission/Observation Consideration of admission/observation: Escalation of care including admission/observation considered negative workup discussed CT scan for possible diverticulitis but after shared decision making will trial therapy for possible diverticulitis then send home with precautions Lab Data [facility] Lab Attestation statement: I reviewed the patient's lab results. 01/18/25 20:43 01/18/25 20:43 Labs: Lab Results 01/18/25 Range/Units 20:43 WBC 12.7 H (4.8-10.8) X10*3/uL RBC 4.86 (4.20-5.50) X10*6/uL Hgb 13.1 (12.0-16.0) g/dl Hct 40.9 (37.0-47.0) % MCV 84.2 (80.0-98.0) fL MCH 27.0 (27.0-33.0) pg MCHC 32.0 (31.0-35.0) g/dl RDW 14.1 (11.0-16.0) % Plt Count 324 (160-400) X10*3/uL MPV 9.0 L (9.4-12.3) fL Immature Gran % (Auto) 0.3 (0.0-0.4) % Neut % (Auto) 60.8 (45-73) % Lymph % (Auto) 28.1 (20-40) % [place] % (Auto) 7.6 (2-11) % Eos % (Auto) 2.8 (0-4) % Baso % (Auto) 0.4 (0-2) % Lymph # (Auto) 3.6 (1.2-4.9) X10*3/uL [place] # (Auto) 1.0 (0.1-1.2) X10*3/uL Eos # (Auto) 0.4 (0.0-0.4) X10*3/uL Baso # (Auto) 0.1 (0.0-0.2) X10*3/uL Abs Immat Gran (auto) 0.04 H (0.00-0.03) X10*3/uL Absolute Neuts (auto) 7.7 (2.0-8.3) x10*3/uL Absolute Nucleated RBC 0.000 (0.0-0.012) X10*3/uL Nucleated RBC % (auto) 0.0 (0.0-0.2) /100WBC Sodium 143 (135-145) mmol/L Potassium 3.6 (3.3-5.1) mmol/L Chloride 110 H (96-108) mmol/L Carbon Dioxide 25 (22-29) mmol/L Anion Gap 12 (12-20) BUN 10 (9-16) mg/dL Creatinine 0.62 (0.5-1.4) mg/dL Estim Creat Clear Calc 163.1 Estimated GFR > 60 Random Glucose 93 (60-115) mg/dL Calcium 8.8 (8.4-10.2) mg/dL Total Bilirubin 0.5 (0.0-1.0) mg/dL Direct Bilirubin 0.2 (0.0-0.5) mg/dL AST 16 (5-31) U/L ALT 20 (0-31) U/L Alkaline Phosphatase 95 (39-117) U/L Total Protein 6.8 (6.5-8.0) g/dL Albumin 3.9 (3.5-5.0) g/dL Lipase 34 (8-78) U/L Urine Color Yellow Urine Appearance Clear Urine pH 6.0 (5.0-9.0) Ur Specific [place] 1.025 (1.005-1.025) Urine Protein Negative (Neg-Trace) mg/dL Urine Glucose (UA) Negative (Negative) mg/dL Urine Ketones Negative (Negative) mg/dL Urine Blood Small (1+) H (Negative) Urine Nitrite Negative (Negative) Ur Leukocyte Esterase Negative (Negative) Urine RBC 6-10 H (0-2) /HPF Urine WBC 0-5 (0-5) /HPF Ur Squamous Epith Cells 11-20 (0-2) /HPF Urine Bacteria None Seen (None Seen) Hyaline Casts 0-2 (0-2) /LPF Urine Test NEGATIVE (NEGATIVE) Independent Interpretation I performed an independent interpretation of an: Ultrasound (normal ) Radiology Impression Discussion of test interpretation with radiology: I have reviewed the radiologist's reading. External Record Review External record reviewed: Outpatient record Prescription Management I considered prescription management with: Pain Medication, Antibiotic and Other Medications Administered Discontinued Medications Generic Name Dose Route Start Last Admin Trade Name Freq PRN Reason Stop Dose Admin Hydrocodone Bitart/Acetaminophen 1 tab 01/18/25 22:15 01/18/25 22:23 Hydrocodone Bit/Acetam 5/325 Tablet PO 01/18/25 22:16 1 tab ONCE ONE Administration Ondansetron HCl 4 mg 01/18/25 22:15 01/18/25 22:23 Ondansetron Odt 4 Mg Tab.Rapdis TRANSLINGU 01/18/25 22:16 4 mg ONCE ONE Administration Discharge Plan Discharge Clinical Impression: Abdominal pain Patient Disposition: Home, Self-Care Instructions: Abdominal Pain (ED) Additional Instructions: labs and urine reassuring ultrasound shows no acute findings as discussed will treat as possible diverticulitis return for fevers, vomiting, worsening pain and any other concerns take all antibiotics, avoid alcohol use and strenuous exercise Findings: Transabdominal scanning performed for overall anatomy. Transvaginal scanning performed for additional detail. Uterus measures 8.8 x 4.6 x 5.3 cm. There is no uterine mass. Endometrium is within normal limits measuring 9 mm in thickness. Right ovary measures 3.1 x 2 x 1.7 cm. There is no right adnexal mass or fluid collection. The right ovary was only able to be visualized from a transabdominal view. Color Doppler blood flow evaluation of the right ovary was limited due to body habitus from a transabdominal view. Left ovary measures 2.8 x 1.3 x 1.6 cm. There is no left adnexal mass or fluid collection. There is normal color Doppler and arterial/venous spectral tracings within the left ovary. There is minimal free fluid in the cul-de-sac. IMPRESSION: Unremarkable pelvic ultrasound. Prescriptions: New levofloxacin 500 mg tablet 500 mg PO DAILY Qty: 10 0RF hydrocodone-acetaminophen 5-325 mg tablet 1 tab PO Q6H PRN (Reason: pain) Qty: 8 0RF Rx Instructions: partial fill okay; Partial Fill upon patient request. metronidazole 500 mg tablet 500 mg PO BID 7 Days Qty: 14 0RF ondansetron 4 mg tablet,disintegrating 4 mg PO Q8H PRN (Reason: nausea and vomiting) Qty: 20 0RF No Action prednisone 20 mg tablet 40 mg PO DAILY Qty: 10 0RF albuterol sulfate 90 mcg/actuation HFA aerosol inhaler 2 puff inhalation Q4-6H PRN (Reason: shortness of breath or wheezing) Qty: 6.7 0RF azithromycin 250 mg tablet See Rx Instructions .ROUTE .COMPLEX Qty: 6 0RF Rx Instructions: For 250 mg dose pack: take 500 mg today (day 1), then 250 mg for 4 days (days 2-5) benzonatate 100 mg capsule 100 mg PO TID PRN (Reason: cough) Qty: 14 0RF azithromycin 500 mg tablet 500 mg PO DAILY 4 Days Qty: 4 0RF omeprazole 40 mg capsule,delayed release(DR/EC) 40 mg PO DAILY prednisone 20 mg tablet 40 mg PO DAILY 5 Days Qty: 10 0RF benzonatate 100 mg capsule 100 mg PO BID PRN (Reason: cough) Qty: 20 0RF albuterol sulfate 90 mcg/actuation aerosol powdr breath activated 2 inh inhalation Q6H PRN (Reason: shortness of breath or wheezing) Qty: 1 0RF Print Language: Guamanian
[2025-01-19 00:40] VITALS: BP 109/66; PULSE 70; RESP 16; TEMP 36.3; O2SAT 97
== END 2025-01-19 00:43 | disposition home or self-care (01) ==
PROVIDERS: Emergency Provider Emergency Medicine
DX: R10.32 Left lower quadrant pain (principal); I10 Essential (primary) hypertension; Z88.0 Allergy status to penicillin
CPT/HCPCS: 36415; 76830; 76856; 80048; 80076; 81001; 81025; 83690; 85025; 93975; 99284

== ENCOUNTER → 2025-01-18 22:15 | Outpatient (BNV) | payer OTHER, SELFPAY | PROVIDERS: Emergency Provider Emergency Medicine; Visit Provider Radiology Diagnostic Radiology | DX: R10.32 Left lower quadrant pain (principal) | CPT/HCPCS: 76830; 76856 ==